=== PATIENT | female | born 1975 | race Caucasian/White ===

== ENCOUNTER 2019-02-27 11:02 | Inpatient (IN) ==
--- NOTE | 2019-02-27 11:34 | Emergency Department Note ---
Disposition Clinical Impression: Mechanical breakdown of internal fixation device of vertebrae Qualifiers: Encounter type: initial encounter Qualified Code(s): T84.216A - Breakdown (mechanical) of internal fixation device of vertebrae, initial encounter Disposition: Admitted As Inpatient Time of Disposition: 16:49 General Adult HPI - General Chief complaint: ED Back Pain/Injury Stated complaint: back pain Time Seen by Provider: 02/27/19 11:09 Source: EMS Limitations: no limitations Nursing Notes Reviewed: Yes Vital Signs Reviewed: Yes - History of Present Illness HPI Narrative: 43 year old female presents with lower back pain. Patient stated she has lower back pain issue for 37 years. She had a 3 back surgeries. In the past 2 weeks, she felt constant pain in lower back. Associated with bladder spasms and frequency urinating. Pt stated she couldn't hold urine and bowel movement sometimes. Pt couldn't stand up and walk without crutches. Pt stated it was new for her. No nausea and vomiting. No chills and fever. No recently injury. Pt had back surgeries by Dr. Contreras who moved to [place]. Pt stated she couldn't contact him. Onset (ago): week(s) (2) Pain Scale: 10 - Related Data Allergies Allergy/AdvReac Type Severity Reaction Status Date / Time Sulfa (Sulfonamide Allergy Hives Verified 02/27/19 12:15 Antibiotics) Constitutional: Denies: fever, chills Eyes: Denies: eye pain ENT ED: Denies: ear pain Cardiovascular: Denies: chest pain Respiratory: Denies: cough Gastrointestinal: Denies: abdominal pain Genitourinary: Denies: urgency Musculoskeletal: Reports: back pain Integumentary: Denies: rash Neurological: Denies: headache Psychiatric: Denies: anxiety Endocrine: Denies: fatigue Hematological/Lymphatic: Denies: easy bleeding Allergic/Immunologic: Denies: facial swelling Past Medical History - Past Medical History Medical history: Reports: no medical history Psychiatric history: Reports: anxiety, bipolar, depression, schizophrenia, other - Social History Smoking Status: Current every day smoker Smokeless Tobacco Status: No Alcohol use: Reports: occasionally Drug use: Reports: methamphetamine Physical Exam - General Limitations: no limitations General appearance: alert - Head Head exam: atraumatic - Eye Eye exam: Present: normal appearance - ENT ENT exam: normal exam - Neck Neck exam: Present: normal inspection - Chest Chest inspection: Present: normal inspection - Respiratory Respiratory exam: Present: normal lung sounds bilaterally - Cardiovascular Cardiovascular exam: Present: regular rate - Abdominal Exam Abdominal exam: Present: soft, Non-Tender - Rectal Exam Handicapped Teacher present during exam: No Rectal exam: Present: decreased rectal tone (slightly loose rectal tone) - Extremities Exam Extremities exam: Present: normal inspection, full ROM. Absent: tenderness - Back Exam Back exam: Present: normal inspection, full ROM, tenderness (lumbar spine tender to palpation) - Neurological Exam Neurological exam: Present: alert, oriented X3, CN II-XII intact, motor sensory deficit (pt couldn't stand up) - Psychiatric Psychiatric exam: Present: normal affect, normal mood - Skin Skin exam: Present: warm, intact Course Vital Signs Temperature 98.2 F 02/27/19 11:10 Pulse Rate 86 02/27/19 11:10 Respiratory Rate 16 02/27/19 11:10 Blood Pressure 141/62 02/27/19 11:10 O2 Sat by Pulse Oximetry 100 02/27/19 11:10 Temperature 98.2 F 02/27/19 16:30 Pulse Rate 88 02/27/19 17:10 Respiratory Rate 16 02/27/19 17:10 Blood Pressure 130/86 02/27/19 17:10 O2 Sat by Pulse Oximetry 97 02/27/19 17:10 Oxygen Delivery Oxygen Delivery Room Air Medical Decision Making - [facility] Narrative Medical decision making narrative: 43 year old female with history of lower back pain and back surgeries since 16 year old presents with worsening lower back pain for 2 weeks. Pt stated she couldn't stand up without crutches. She basically stay on bed in the past two weeks. She felt bladder spasms. She couldn't hold urine and bowel movement sometimes. No recently injury. Physical exam: lumbar spine tender to palpation, not able to stand up, slightly decreased rectal tone. Lumbar xray indicated broken lowest screw in lumbar. Spoke with Dr. Conde. He suggested to admit p atient for pain control and lumbar MRI. He will see the patient tomorrow. I spoke with hospitalist Dr. Serrano. Pt is accepted. Pt's labs: hemoglobin 9.0. Pt stated she always has "lower Iron". Dr. Cash has seen the patient and agrees the above plan. - Lab Data Lab results reviewed: Yes I reviewed the patient's lab results. Result diagrams: 02/27/19 16:23 02/27/19 16:23 Lab Results 02/27/19 02/27/19 02/27/19 Range/Units 12:52 16:23 16:23 WBC 9.5 (4.3-11.1) K/mcL RBC 3.15 L (3.82-4.97) M/mcL Hgb 9.0 L (11.5-15.4) g/dL Hct 28.2 L (35.3-44.9) % MCV 89.5 (83.0-100.0) fL MCH 28.6 (28.0-33.3) pg MCHC 31.9 (31.6-35.5) g/dL RDW 14.6 H (11.5-14.5) % Plt Count 747 H (140-400) K/mcL MPV 8.6 L (9.4-12.4) fL Immature Gran % 0.5 (0-4) % Seg Neutrophils % 74.2 % Lymphocytes % 15.4 % Monocytes % 6.5 % Eosinophils % 2.7 % Basophils % 0.7 % Neutrophils # 7.1 (1.6-8.9) K/mcL Lymphocytes # 1.5 (0.6-4.6) K/mcL Monocytes # 0.6 (0.0-1.3) K/mcL Eosinophils # 0.3 (0.0-0.6) K/mcL Basophils # 0.1 (0.0-0.2) K/mcL Sodium 136 (136-145) mEq/L Potassium 3.5 (3.5-5.1) mEq/L Chloride 101 (98-107) mEq/L Carbon Dioxide 23 (23-29) mEq/L BUN 16 (6-20) mg/dL Creatinine 0.80 (0.60-1.20) mg/dL Est GFR ( Amer) > 60 (> 60) Est GFR (Non-Af Amer) > 60 (> 60) BUN/Creatinine Ratio 20 (6-26) Glucose 117 H (70-105) mg/dL Calculated Osmolality 284 (280-300) Calcium 9.4 (8.6-10.3) mg/dL Total Bilirubin 0.4 (0.3-1.0) mg/dL AST 40 H (13-39) Units/L ALT 47 (7-52) Units/L Alkaline Phosphatase 82 (34-104) Units/L Serum Total Protein 8.4 (6.4-8.9) g/dL Albumin 3.6 (3.5-5.7) g/dL Globulin 4.8 H (2.4-3.5) g/dL Albumin/Globulin Ratio 0.8 L (1.1-2.2) Urine Color Yellow (Yellow) Urine Clarity Turbid A (Clear) Urine pH 5.5 (5.0-8.0) pH Units Ur Specific [place] 1.029 H (1.010-1.025) Urine Protein 30 H (Neg-Trace) mg/dL Urine Glucose (UA) Normal (Normal) mg/dL Urine Ketones Negative (Negative) mg/dL Urine Blood Moderate H (Negative) Urine Nitrite Negative (Negative) Urine Bilirubin Negative (Negative) Urine Urobilinogen Normal (Normal) mg/dL Ur Leukocyte Esterase Moderate H (Negative) Urine Microscopic RBC 3-5 H (0-3) per hpf Urine Microscopic WBC TNTC H (0-3) per hpf Ur Squamous Epith Cells Many H (None-Few) per lpf Urine Bacteria Many H (None-Few) per hpf Urine Mucus Many H (Few) Ur Culture Indicated? YES A (NO) - Radiology Data Radiology results reviewed: Yes I reviewed the patient's radiology results. HISTORY: ORDERING SYSTEM PROVIDED HISTORY: lower back pain FINDINGS: There is a break at the base of the left sided transpedicle screws extending into S1. Indeterminate if this was present on the comparison due to oblique positioning and patient habitus. Fusion hardware elsewhere appears normal. There is unchanged slight anterior wedging of T12. No fracture. No spondylolisthesis. XR/XR lumbar spine 2-3V IMPRESSION: There is a nondisplaced break at the base of the most inferior fusion screw, at the S1 level. No evidence of fusion hardware failure elsewhere, or other acute process. No fracture in the lumbar spine. There are advanced degenerative changes of the facet joints. D/ / Yoel Merritt MD / Yoel Merritt MD Interpreting Provider: Yoel Merritt MD Attestation Statement - Attestation Attestation: I have personally performed a face to face evaluation on this patient. I have reviewed and agree with the care plan. History and Exam by me shows: [id number] time provided I reviewed the transcribed report of her lumbar spine imaging study obtained from the emergency department
[2019-02-27] MEDS ORDERED: *HR* HYDROcodone/Acet 5/325 mg TABLET PO ONE (12:11)
[2019-02-27 13:07] LABS: Bilirubin,Urine Negative (Negative); Blood,Urine Moderate (Negative); Clarity,Urine Turbid (Clear); Color,Urine Yellow (Yellow); Glucose,Urine (UA) Normal (Normal); Ketones,Urine Negative (Negative); Leukocyte Esterase,Urine Moderate (Negative); Nitrite,Urine Negative (Negative); PH,Urine 5.5 pH Units (5.0-8.0); Protein,Urine 30 mg/dL (Neg-Trace); Specific Gravity,Urine 1.029 (1.010-1.025); Urobilinogen,Urine Normal (Normal)
[2019-02-27 13:15] LABS: Bacteria,Urine Many per hpf (None-Few); Squamous Epithelial Cell,Urine Many per lpf (None-Few); WBC,Urine TNTC per hpf (0-3)
[2019-02-27 13:35] LABS: Mucus,Urine Many (Few)
[2019-02-27] MEDS ORDERED: *HR* FentaNYL (PF) 100 MCG/2 ML VIAL IVP ONE (16:08)
[2019-02-27 16:34] LABS: Basophils # 0.1 K/mcL (0.0-0.2); Basophils % 0.7 %; Eosinophils # 0.3 K/mcL (0.0-0.6); Eosinophils % 2.7 %; Hematocrit 28.2 % (35.3-44.9); Immature Granulocytes % 0.5 % (0-4); Lymphocytes # 1.5 K/mcL (0.6-4.6); Lymphocytes % 15.4 %; Mean Corpuscular HGB Conc 31.9 g/dL (31.6-35.5); Mean Corpuscular Hemoglobin 28.6 pg (28.0-33.3); Mean Corpuscular Volume 89.5 fL (83.0-100.0); Mean Platelet Volume 8.6 fL (9.4-12.4); Monocytes # 0.6 K/mcL (0.0-1.3); Monocytes % 6.5 %; Neutrophils # 7.1 K/mcL (1.6-8.9); Platelet Count 747 K/mcL (140-400); Red Blood Count 3.15 M/mcL (3.82-4.97); Red Cell Distribution Width 14.6 % (11.5-14.5); Segmented Neutrophils % 74.2 %; White Blood Count 9.5 K/mcL (4.3-11.1)
[2019-02-27 16:54] LABS: Alanine Aminotransferase 47 Units/L (7-52); Albumin 3.6 g/dL (3.5-5.7); Albumin/Globulin Ratio 0.8 (1.1-2.2); Alkaline Phosphatase 82 Units/L (34-104); Aspartate Amino Transferase 40 Units/L (13-39); BUN/Creatinine Ratio 20 (6-26); Bilirubin,Total 0.4 mg/dL (0.3-1.0); Blood Urea Nitrogen 16 mg/dL (6-20); Calcium 9.4 mg/dL (8.6-10.3); Carbon Dioxide 23 mEq/L (23-29); Chloride 101 mEq/L (98-107); Globulin 4.8 g/dL (2.4-3.5); Glucose 117 mg/dL (70-105); Osmolality,Calculated 284 (280-300); Potassium 3.5 mEq/L (3.5-5.1); Sodium 136 mEq/L (136-145); Total Protein 8.4 g/dL (6.4-8.9); eGFR For African Americans > 60 (> 60); eGFR For Non-African Americans > 60 (> 60)
[2019-02-27] MEDS ORDERED: Ondansetron 4 MG/2 ML VIAL IVP PRN (17:19)
[2019-02-27] MEDS ORDERED: Mag Hydrox/Al Hydrox/Simeth 30 ML UDC PO PRN (17:19)
[2019-02-27] MEDS ORDERED: Naloxone 0.4 MG/ML INJ IVP PRN (17:19)
[2019-02-27] MEDS ORDERED: MOM Conc 10 ML UD.LIQ PO PRN (17:19)
[2019-02-27] MEDS ORDERED: *HR* Promethazine 25 MG/ML VIAL IVP PRN (17:19)
--- NOTE | 2019-02-27 17:24 | Internal Med History&Physical ---
Date of Encounter: 02/27/19 Time of Encounter: 17:51 Internal Medicine - H&P: HPI Admitted From: Home Plans for Post Hospital Care: Home History of present illness: Ms. Alves is a 43 year old female with history of chronic back pain and multiple back surgery presented with three weeks of acute severe lower back pain. She has 3 back surgery in the past with the latest one in [address] Contreras at [facility]. After the surgery, her back pain has significantly improved until 3 weeks ago, when she experienced sudden onset of lower back pain without obvious trigger. She denies recent trauma or strenuous activity. The pain has progressively got worse and she finally decided to come here for further evaluation. 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 She reported dysuria and urgency recently, she tried drinking large amount of cranberry juice without relief of symptoms. She denies fever, chills, or night sweats. She has no weight loss, appetite change, or bowel habit change. In the ED, x-ray of lumbar showed a nondisplaced break at the base of the most inferior fusion screw at the S1 level, no fracture in the lumbar spine, and advanced degenerative change of the facet joints. Orthopedics was consulted, recommended MRI of spine for further evaluation. Patient is admitted for further management. CODE STATUS discussed with patient, she will be full code while in the hospital. Past Med Surg Social Fam HX - Past Medical History Medical history: no medical history Psychiatric history: anxiety, bipolar, depression, schizophrenia, other - Social History Smoking Status: Current every day smoker Smokeless Tobacco Status: No Alcohol use: occasionally Drug use: methamphetamine Internal Medicine - H&P: Meds Allergy/AdvReac Type Severity Reaction Status Date / Time Sulfa (Sulfonamide Allergy Hives Verified 02/27/19 12:15 Antibiotics) All Systems PM: A 10-system review of systems was performed and is negative for pertinent findin gs except as documented above in the HPI. Review of systems: REVIEW OF SYSTEMS: CONSTITUTIONAL: No weight loss, fever, chills, weakness or fatigue. HEENT: Eyes: No visual loss, blurred vision, double vision or yellow sclerae. Ears, Nose, Throat: No hearing loss, sneezing, congestion, runny nose or sore throat. SKIN: No rash or itching. CARDIOVASCULAR: No chest pain, chest pressure or chest discomfort. No palpitations or edema. RESPIRATORY: No shortness of breath, cough or sputum. GASTROINTESTINAL: No anorexia, nausea, vomiting or diarrhea. No abdominal pain or blood. GENITOURINARY: No dysuria, urgency, or frequency. NEUROLOGICAL: No headache, dizziness, syncope, paralysis, ataxia, numbness or tingling in the extremities. No change in bowel or bladder control. MUSCULOSKELETAL: see HPI. HEMATOLOGIC: No anemia, bleeding or bruising. LYMPHATICS: No enlarged nodes. No history of splenectomy. PSYCHIATRIC: No history of depression or anxiety. ENDOCRINOLOGIC: No reports of sweating, cold or heat intolerance. No polyuria or polydipsia. - Constitutional Vitals: Temp Pulse Resp BP Pulse Ox 98.2 F 88 16 130/86 97 02/27/19 16:30 02/27/19 17:10 02/27/19 17:10 02/27/19 17:10 02/27/19 17:10 General appearance: Present: A&O X 3 Exam: PHYSICAL EXAMINATION: GENERAL APPEARANCE: The patient is alert, oriented and in no acute distress. HEENT: Head is normocephalic. The sinuses are nontender. Pupils are equal and reactive. The nares are patent. Oropharynx clear without lesions. NECK: Supple without lymphadenopathy. HEART: Regular rate and rhythm. LUNGS: No crackles or wheezes are heard. ABDOMEN: Soft, nontender, nondistended with good bowel sounds heard. Inguinal area is normal. EXTREMITIES: tenderness at the lower back. NEUROLOGICAL: Gross nonfocal. SKIN: Warm and dry without any rash. Internal Med - H&P Results - Labs CBC & Chem 7: 02/27/19 16:23 02/27/19 16:23 Labs: Short CBC 02/27/19 Range/Units 16:23 WBC 9.5 (4.3-11.1) K/mcL Hgb 9.0 L (11.5-15.4) g/dL Hct 28.2 L (35.3-44.9) % Plt Count 747 H (140-400) K/mcL Neutrophils # 7.1 (1.6-8.9) K/mcL BMP 02/27/19 16:23 Sodium 136 Potassium 3.5 Chloride 101 Carbon Dioxide 23 BUN 16 Creatinine 0.80 Glucose 117 H Calcium 9.4 Liver Function 02/27/19 Range/Units 16:23 Total Bilirubin 0.4 (0.3-1.0) mg/dL AST 40 H (13-39) Units/L ALT 47 (7-52) Units/L Alkaline Phosphatase 82 (34-104) Units/L Albumin 3.6 (3.5-5.7) g/dL Urine 02/27/19 Range/Units 12:52 Urine Color Yellow (Yellow) Urine Clarity Turbid A (Clear) Urine pH 5.5 (5.0-8.0) pH Units Ur Specific [place] 1.029 H (1.010-1.025) Urine Protein 30 H (Neg-Trace) mg/dL Urine Glucose (UA) Normal (Normal) mg/dL - Impressions ITS Impressions Lumbar Spine X-Ray 02/27/19 13:48 IMPRESSION: There is a nondisplaced break at the base of the most inferior fusion screw, at the S1 level. No evidence of fusion hardware failure elsewhere, or other acute process. No fracture in the lumbar spine. There are advanced degenerative changes of the facet joints. D/ / Yoel Merritt MD / Yoel Merritt MD Interpreting Provider: Yoel Merritt MD - Assessment and Plan (1) Acute exacerbation of chronic low back pain Current Visit: Yes Status: Acute Assessment and plan: 43-year-old female with chronic back pain status post multiple back surgery presented with acute exacerbation of back pain. X-ray of lumbar showed nondisplaced broken hardware. Orthopedics consulted, recommended pain control, and mild lumbar. (2) Mechanical breakdown of internal fixation device of vertebrae Current Visit: Yes Status: Acute Assessment and plan: Same as above. Qualifiers: Encounter type: initial encounter Qualified Code(s): T84.216A - Breakdown (mechanical) of internal fixation device of vertebrae, initial encounter (3) UTI (urinary tract infection) Current Visit: Yes Status: Acute Assessment and plan: Rocephin started, pending urine culture. Qualifiers: Urinary tract infection type: site unspecified Hematuria presence: without hematuria Qualified Code(s): N39.0 - Urinary tract infection, site not specified (4) Morbid obesity with BMI of 45.0-49.9, adult Current Visit: No Status: Chronic Assessment and plan: Weight control discussed with patient. (5) DVT prophylaxis Current Visit: Yes Status: Acute Assessment and plan: Heparin subcutaneous. - Time Spent With Patient Total time spent is greater than 50% in coordination of care (as documented) at patient's floor/unit and/or counseling patient: Greater than 35 minutes
[2019-02-27] MEDS ORDERED: cefTRIAXone 2,000 MG in Water for inj. (sterile) 20 ML IVP SCH (18:00)
[2019-02-27] MEDS: *HR* OxyCODONE/APAP 7.5/325 TABLET PO PRN ×2 (19:01→23:04)
[2019-02-27] MEDS: *HR* Heparin 5,000 UNIT/ML VIAL SQ SCH (19:57)
[2019-02-27] MEDS ORDERED: tiZANidine 4 MG TABLET PO ONE (21:54)
[2019-02-27] MEDS: Nicotine 14 MG PATCH.TD24 TD SCH (22:55)
[2019-02-28] MEDS: *HR* OxyCODONE/APAP 7.5/325 TABLET PO PRN ×4 (03:41→18:20)
[2019-02-28 05:27] LABS: Basophils # 0.1 K/mcL (0.0-0.2); Basophils % 0.8 %; Eosinophils # 0.3 K/mcL (0.0-0.6); Eosinophils % 3.1 %; Hematocrit 27.6 % (35.3-44.9); Hemoglobin 8.7 g/dL (11.5-15.4); Immature Granulocytes % 0.7 % (0-4); Lymphocytes # 1.9 K/mcL (0.6-4.6); Lymphocytes % 18.2 %; Mean Corpuscular HGB Conc 31.5 g/dL (31.6-35.5); Mean Corpuscular Volume 88.7 fL (83.0-100.0); Mean Platelet Volume 8.8 fL (9.4-12.4); Monocytes # 0.8 K/mcL (0.0-1.3); Monocytes % 7.6 %; Neutrophils # 7.3 K/mcL (1.6-8.9); Platelet Count 737 K/mcL (140-400); Red Blood Count 3.11 M/mcL (3.82-4.97); Red Cell Distribution Width 14.6 % (11.5-14.5); Segmented Neutrophils % 69.6 %; White Blood Count 10.4 K/mcL (4.3-11.1)
[2019-02-28] MEDS: *HR* Heparin 5,000 UNIT/ML VIAL SQ SCH ×2 (05:30→18:09)
[2019-02-28 05:47] LABS: BUN/Creatinine Ratio 18 (6-26); Blood Urea Nitrogen 16 mg/dL (6-20); Calcium 9.2 mg/dL (8.6-10.3); Carbon Dioxide 22 mEq/L (23-29); Chloride 100 mEq/L (98-107); Glucose 120 mg/dL (70-105); Osmolality,Calculated 282 (280-300); Potassium 3.4 mEq/L (3.5-5.1); Sodium 135 mEq/L (136-145); eGFR For African Americans > 60 (> 60); eGFR For Non-African Americans > 60 (> 60)
[2019-02-28] MEDS: tiZANidine 4 MG TABLET PO PRN ×3 (06:48→23:00)
--- NOTE | 2019-02-28 08:37 | Orthopedic Consult Note ---
<Nabila Young E - Last Filed: 02/28/19 13:52> Date of Encounter: 02/28/19 History of Present Illness HPI: Ms. Alves is a 43 year old female Back pain with bowel and bladder dysfunction starting appx 3 weeks ago. Denies injury or trauma. H/o lumbar fusion in remote past. Patient has sensation and motion to b/l LE hip, knee, and ankle and intact DP pulses Patient asking how long will be in hospital Xrays demonstrate broken screw Awaiting MRI results Case reviewed with Dr. Conde. He states will review MRI and XRay films and make further recommendations regarding intervention. Past Med Surg Social Fam HX - Past Medical History Medical history: no medical history Psychiatric history: anxiety, bipolar, depression, schizophrenia - Past Surgical History Additional surgical history: 3 back surgeries - Social History Smoking Status: Current every day smoker Smokeless Tobacco Status: No Alcohol use: none, occasionally Drug use: methamphetamine Medications and Allergies No Known Home Drugs 02/28/19 [History] Allergy/AdvReac Type Severity Reaction Status Date / Time Sulfa (Sulfonamide Allergy Hives Verified 02/28/19 10:48 Antibiotics) All Systems Reviewed: The remainder of the systems were reviewed and are negative Physical Exam - Constitutional Vitals: Temp Pulse Resp BP Pulse Ox 99.0 F 90 18 120/72 97 02/28/19 08:06 02/28/19 08:06 02/28/19 08:06 02/28/19 08:06 02/28/19 08:06 Results - Labs Result Diagrams: 02/28/19 04:45 02/28/19 04:45 Labs: Abnormal lab results RBC 3.11 M/mcL (3.82-4.97) L 02/28/19 04:45 Hgb 8.7 g/dL (11.5-15.4) L 02/28/19 04:45 Hct 27.6 % (35.3-44.9) L 02/28/19 04:45 MCHC 31.5 g/dL (31.6-35.5) L 02/28/19 04:45 RDW 14.6 % (11.5-14.5) H 02/28/19 04:45 Plt Count 737 K/mcL (140-400) H 02/28/19 04:45 MPV 8.8 fL (9.4-12.4) L 02/28/19 04:45 Sodium 135 mEq/L (136-145) L 02/28/19 04:45 Potassium 3.4 mEq/L (3.5-5.1) L 02/28/19 04:45 Carbon Dioxide 22 mEq/L (23-29) L 02/28/19 04:45 Glucose 120 mg/dL (70-105) H 02/28/19 04:45 AST 40 Units/L (13-39) H 02/27/19 16:23 Globulin 4.8 g/dL (2.4-3.5) H 02/27/19 16:23 Albumin/Globulin Ratio 0.8 (1.1-2.2) L 02/27/19 16:23 Urine Clarity Turbid (Clear) A 02/27/19 12:52 Ur Specific [place] 1.029 (1.010-1.025) H 02/27/19 12:52 Urine Protein 30 mg/dL (Neg-Trace) H 02/27/19 12:52 Urine Blood Moderate (Negative) H 02/27/19 12:52 Ur Leukocyte Esterase Moderate (Negative) H 02/27/19 12:52 Urine Microscopic RBC 3-5 per hpf (0-3) H 02/27/19 12:52 Urine Microscopic WBC TNTC per hpf (0-3) H 02/27/19 12:52 Ur Squamous Epith Cells Many per lpf (None-Few) H 02/27/19 12:52 Urine Bacteria Many per hpf (None-Few) H 02/27/19 12:52 Urine Mucus Many (Few) H 02/27/19 12:52 Ur Culture Indicated? YES (NO) A 02/27/19 12:52 H & H 02/27/19 02/28/19 Range/Units 16:23 04:45 Hgb 9.0 L 8.7 L (11.5-15.4) g/dL Hct 28.2 L 27.6 L (35.3-44.9) % All other labs normal. Consult Discharge Plan - Plan Referrals: NONE,PCP [Primary Care Provider] - <Chriss Conde Jr - Last Filed: 02/28/19 16:54> Date of Encounter: 02/28/19 Time of Encounter: 16:47 History of Present Illness Chief complaint: Back pain, status post lumbar fusion, lumbar stenosis HPI: Ms. Alves is a 43 year old female who has back pain which is her predominant symptoms. She also has some intermittent right lower extremity radicular symptoms. She also complains of some bladder status disturbance in that she cannot hold her urine. She is aware when she needs to defecate or urinate but states for at least several weeks this is not as well controlled. She has a history of [address] Skaggs, a neurosurgeon now [place], [place]. We are asked to see due to her symptomatology and management. Exam is as above. She is neurovascularly intact with regard to her bilateral lower extremities. Moves symmetrically. She has no clonus. She fires all upper and lower extremity groups with good strength. MRI of the lumbar spine reveals multilevel degenerative changes. There is instrumentation at on the right at L3-4 L5-S1 which are pedicle screws. There are interbody grafts at L3-4, L4-5, and L5-S1. There are postsurgical changes at these levels. There is severe stenosis at L3-4 and more moderate stenosis at L4-5 and L5-S1. Radiographic examination reveals a broken S1 pedicle screw on the right. This suggests probable pseudarthrosis at this level. Impression; 1) lumbar stenosis 2) lumbar radiculopathy 3) failed hardware 4) status post lumbar fusion Plan: I long discussion with the patient. Patient has no indications for acute surgical intervention. I have low suspicion for true neurogenic bladder as a result of her stenosis. I informed the patient that if indeed the stenosis caused by bladder symptomatology and acute intervention 3 weeks after the onset of symptoms and not likely to improve symptomatology. I suggested pain management consultation as an outpatient basis for consideration of lumbar epidural steroid injections. She may need outpatient urology consultation. In addition I would suggest an in-house physical therapy evaluation for potential rehabilitation versus home therapy or outpatient physical therapy. Gait training and lower extremity strengthening should be emphasized. She can follow-up in my office in 6 weeks after completion of physical therapy and trial of lumbar epidural steroid injections. All Systems Reviewed: The remainder of the systems were reviewed and are negative Physical Exam - Constitutional Vitals: Temp Pulse Resp BP Pulse Ox 100.0 F H 88 18 128/85 96 02/28/19 15:20 02/28/19 15:20 02/28/19 15:20 02/28/19 15:20 02/28/19 15:20 Results - Labs Result Diagrams: 02/28/19 04:45 02/28/19 04:45 Labs: Abnormal lab results RBC 3.11 M/mcL (3.82-4.97) L 02/28/19 04:45 Hgb 8.7 g/dL (11.5-15.4) L 02/28/19 04:45 Hct 27.6 % (35.3-44.9) L 02/28/19 04:45 MCHC 31.5 g/dL (31.6-35.5) L 02/28/19 04:45 RDW 14.6 % (11.5-14.5) H 02/28/19 04:45 Plt Count 737 K/mcL (140-400) H 02/28/19 04:45 MPV 8.8 fL (9.4-12.4) L 02/28/19 04:45 Sodium 135 mEq/L (136-145) L 02/28/19 04:45 Potassium 3.4 mEq/L (3.5-5.1) L 02/28/19 04:45 Carbon Dioxide 22 mEq/L (23-29) L 02/28/19 04:45 Glucose 120 mg/dL (70-105) H 02/28/19 04:45 AST 40 Units/L (13-39) H 02/27/19 16:23 Globulin 4.8 g/dL (2.4-3.5) H 02/27/19 16:23 Albumin/Globulin Ratio 0.8 (1.1-2.2) L 02/27/19 16:23 Urine Clarity Turbid (Clear) A 02/27/19 12:52 Ur Specific [place] 1.029 (1.010-1.025) H 02/27/19 12:52 Urine Protein 30 mg/dL (Neg-Trace) H 02/27/19 12:52 Urine Blood Moderate (Negative) H 02/27/19 12:52 Ur Leukocyte Esterase Moderate (Negative) H 02/27/19 12:52 Urine Microscopic RBC 3-5 per hpf (0-3) H 02/27/19 12:52 Urine Microscopic WBC TNTC per hpf (0-3) H 02/27/19 12:52 Ur Squamous Epith Cells Many per lpf (None-Few) H 02/27/19 12:52 Urine Bacteria Many per hpf (None-Few) H 02/27/19 12:52 Urine Mucus Many (Few) H 02/27/19 12:52 Ur Culture Indicated? YES (NO) A 02/27/19 12:52 H & H 02/28/19 Range/Units 04:45 Hgb 8.7 L (11.5-15.4) g/dL Hct 27.6 L (35.3-44.9) % All other labs normal.
[2019-02-28] MEDS: Nicotine 14 MG PATCH.TD24 TD SCH (10:11)
--- NOTE | 2019-02-28 15:01 | Internal Med Progress Note ---
<Mane Loomis - Last Filed: 02/28/19 16:12> Hospitalist Progress Note - Encounter Date of Encounter: 02/28/19 Time of Encounter: 14:56 - Subjective Interval History: Ms. Ly is a 43 y/o F who presented to the ED 02/27 with the complaint of lower back pain. Pt. states the pain has been ongoing for 3 weeks and could be related to her previous back surgeries 6 years prior. Pt. complains of b/l numbness, tingling, and bowel/bladder incontinence. Pt. denies decreased sensation on b/l lower extremities. Pt. is able to sense when she needs to have a bowel movement but is unable to control bowels or bladder. Pt. denies SOB, coughing, wheezing, dizziness, pain or loss of sensation in UE, palpitations, orthopnea, or PND. - Exam Vitals: Temp Pulse Resp BP Pulse Ox 99.4 F 94 18 127/78 96 02/28/19 11:30 02/28/19 11:30 02/28/19 11:30 02/28/19 11:30 02/28/19 11:30 Exam: Gen: AAOx3, no acute distress. Head: normocephalic Cardio: S1/S2, Regular rate and rhythm, no murmurs or gallops. Lungs: CTA b/l, no wheezes or crackles Abd: Soft, nontender, nondistended, bowel sounds present. Extremities: tenderness at the lower back, muscle strength normal, sensation normal Neuro: no focal deficits Skin: Warm and dry without any rash. - Assessment and Plan (1) Mechanical breakdown of internal fixation device of vertebrae Current Visit: Yes Status: Acute Assessment and Plan: Fixation screw between L5 and S1 on left shows nondisplaced fracture. Dr. Carlton reviewed MRI and films and recommend outpatient pain control and P T. PT consultation submitted for patient. Infectious disease will be consulted for suspected osteomyelitis. Patient will be monitored for changes and pain control. (2) Osteomyelitis Current Visit: Yes Status: Suspected Assessment and Plan: Pt. presented with lower back pain, films suggest nondisplaced internal fixation fracture. Suspected osteomyelitis in lumbar spine. Infectious disease consultation for evaluation. (3) Acute exacerbation of chronic low back pain Current Visit: Yes Status: Acute Assessment and Plan: 43-year-old female with chronic back pain status post multiple back surgery pr esented with acute exacerbation of back pain. X-ray of lumbar showed nondisplaced broken hardware. Orthopedics consulted, recommended pain control, and outpatient PT. Infectious disease consulted for suspected osteomyelitis. (4) Morbid obesity with BMI of 45.0-49.9, adult Current Visit: No Status: Chronic (5) DVT prophylaxis Current Visit: Yes Status: Acute Assessment and Plan: Heparin Subcutaneously on 02/27 (6) UTI (urinary tract infection) Current Visit: Yes Status: Acute Assessment and Plan: Rocephin started, pending urine culture. - Time Spent with Patient Total time spent is greater than 50% in coordination of care (as documented) at patient's floor/unit and/or counseling patient: Internal Medicine: Result - Labs CBC & Chem 7: 02/28/19 04:45 02/28/19 04:45 Labs: Short CBC 02/27/19 02/28/19 Range/Units 16:23 04:45 WBC 9.5 10.4 (4.3-11.1) K/mcL Hgb 9.0 L 8.7 L (11.5-15.4) g/dL Hct 28.2 L 27.6 L (35.3-44.9) % Plt Count 747 H 737 H (140-400) K/mcL Neutrophils # 7.1 7.3 (1.6-8.9) K/mcL BMP 02/27/19 02/28/19 16:23 04:45 Sodium 136 135 L Potassium 3.5 3.4 L Chloride 101 100 Carbon Dioxide 23 22 L BUN 16 16 Creatinine 0.80 0.88 Glucose 117 H 120 H Calcium 9.4 9.2 Liver Function 02/27/19 Range/Units 16:23 Total Bilirubin 0.4 (0.3-1.0) mg/dL AST 40 H (13-39) Units/L ALT 47 (7-52) Units/L Alkaline Phosphatase 82 (34-104) Units/L Albumin 3.6 (3.5-5.7) g/dL - Impressions Impressions Lumbar Spine X-Ray 02/27/19 13:48 IMPRESSION: There is a nondisplaced break at the base of the most inferior fusion screw, at the S1 level. No evidence of fusion hardware failure elsewhere, or other acute process. No fracture in the lumbar spine. There are advanced degenerative changes of the facet joints. D/ / Yoel Merritt MD / Yoel Merritt MD Interpreting Provider: Yoel Merritt MD Lumbar Spine MRI 02/27/19 16:06 IMPRESSION: Abnormal bone marrow signal at L5-S1 with increased T2 signal in the L5-S1 disc space, suspicious for discitis/osteomyelitis. Increased T2 signal in the paraspinal soft tissue surrounding the L5 and S1 vertebral bodies, likely related to extension of inflammatory changes without drainable fluid collection or well-formed abscess. Status post posterior instrumented fusion at L3-4 and L5-S1. Known nondisplaced fracture of the left S1 screw. The left L5 pedicle screw extends to the superior endplate of L5, possibly with hardware loosening. Degenerative disc disease, exacerbating congenitally narrow lumbar spinal canal, progressed at L3-4 and L5-S1. Spinal canal narrowing, severe at L3-4, moderate to severe at L4-5 and L5-S1. Foraminal narrowing, moderate to severe at left L5-S1, moderate at left L3-4 and right L5-S1, mild to moderate at left L4-5, minimal at right L3-4 and right L4-5. D/ / El Hurd MD / El Hurd MD Interpreting Provider: El Hurd MD Consult Discharge Plan - Plan Referrals: NONE,PCP [Primary Care Provider] - <Jesus Rodas - Last Filed: 02/28/19 18:28> Hospitalist Progress Note - Encounter Date of Encounter: 02/28/19 - Exam Vitals: Temp Pulse Resp BP Pulse Ox 100.0 F H 88 18 128/85 96 02/28/19 15:20 02/28/19 15:20 02/28/19 15:20 02/28/19 15:20 02/28/19 15:20 - Assessment and Plan (1) Mechanical breakdown of internal fixation device of vertebrae Current Visit: Yes Status: Acute (2) UTI (urinary tract infection) Current Visit: Yes Status: Suspected (3) Morbid obesity with BMI of 45.0-49.9, adult Current Visit: No Status: Chronic (4) DVT prophylaxis Current Visit: Yes Status: Acute (5) Acute exacerbation of chronic low back pain Current Visit: Yes Status: Acute - Time Spent with Patient Total time spent is greater than 50% in coordination of care (as documented) at patient's floor/unit and/or counseling patient: Internal Medicine: Result - Labs CBC & Chem 7: 02/28/19 04:45 02/28/19 04:45 Labs: Short CBC 02/28/19 Range/Units 04:45 WBC 10.4 (4.3-11.1) K/mcL Hgb 8.7 L (11.5-15.4) g/dL Hct 27.6 L (35.3-44.9) % Plt Count 737 H (140-400) K/mcL Neutrophils # 7.3 (1.6-8.9) K/mcL BMP 02/28/19 04:45 Sodium 135 L Potassium 3.4 L Chloride 100 Carbon Dioxide 22 L BUN 16 Creatinine 0.88 Glucose 120 H Calcium 9.2 - Impressions Impressions Lumbar Spine MRI 02/27/19 16:06 IMPRESSION: Abnormal bone marrow signal at L5-S1 with increased T2 signal in the L5-S1 disc space, suspicious for discitis/osteomyelitis. Increased T2 signal in the paraspinal soft tissue surrounding the L5 and S1 vertebral bodies, likely related to extension of inflammatory changes without drainable fluid collection or well-formed abscess. Status post posterior instrumented fusion at L3-4 and L5-S1. Known nondisplaced fracture of the left S1 screw. The left L5 pedicle screw extends to the superior endplate of L5, possibly with hardware loosening. Degenerative disc disease, exacerbating congenitally narrow lumbar spinal canal, progressed at L3-4 and L5-S1. Spinal canal narrowing, severe at L3-4, moderate to severe at L4-5 and L5-S1. Foraminal narrowing, moderate to severe at left L5-S1, moderate at left L3-4 and right L5-S1, mild to moderate at left L4-5, minimal at right L3-4 and right L4-5. D/ / El Hurd MD / El Hurd MD Interpreting Provider: El Hurd MD - Attending Attestation The history, physical exam, and medical decision making was performed by the medical student either while I was physically present and actively involved or I personally re-performed the exam and medical decision making. I have verified the accuracy of the medical student's documentation with regards to the history, physical exam findings, and medical decision making on 02/28/19. Ms Alves is currently hospitalized for back pain. She remains moderate to high risk due to potential for worsening clinical status. Ms Alves is resting in bed. No fever or chills. Admits to IV drug abuse. No GI issues. Exam Alert. Comfortable NC. EOMI. Mucus membranes dry Neck supple. Heart reg No wheeze Abd soft and nontender No edema now Moves all extremities No rash. I/P 1. Back pain - appreciate Dr. Conde input 2. Abnl MRI - blood cx pending. ID input appreciated. Pt at risk due to hx of IV drug abuse. 3. Morbid obesity Further diagnoses and plan as above. <Mane Loomis - Last Filed: 02/28/19 16:12> (1) Mechanical breakdown of internal fixation device of vertebrae Qualifiers: Encounter type: initial encounter Qualified Code(s): T84.216A - Breakdown (mechanical) of internal fixation device of vertebrae, initial encounter <Jesus Rodas - Last Filed: 02/28/19 18:28> (1) Mechanical breakdown of internal fixation device of vertebrae Qualifiers: Encounter type: subsequent encounter Qualified Code(s): T84.216D - Breakdown (mechanical) of internal fixation device of vertebrae, subsequent encounter (2) UTI (urinary tract infection) Qualifiers: Urinary tract infection type: acute cystitis Hematuria presence: without h ematuria Qualified Code(s): N30.00 - Acute cystitis without hematuria
[2019-02-28] MEDS ORDERED: cefTRIAXone 1,000 MG in Water for inj. (sterile) 10 ML IVP SCH (18:00)
[2019-02-28] MEDS: Acetaminophen 325 MG TABLET PO PRN (21:35)
[2019-03-01] MEDS: *HR* OxyCODONE/APAP 7.5/325 TABLET PO PRN ×4 (01:43→21:28)
[2019-03-01] MEDS: *HR* Heparin 5,000 UNIT/ML VIAL SQ SCH ×2 (04:55→17:54)
[2019-03-01] MEDS: tiZANidine 4 MG TABLET PO PRN ×3 (05:03→17:53)
[2019-03-01 06:10] LABS: Basophils # 0.1 K/mcL (0.0-0.2); Basophils % 0.8 %; Eosinophils # 0.3 K/mcL (0.0-0.6); Eosinophils % 2.5 %; Hemoglobin 8.9 g/dL (11.5-15.4); Immature Granulocytes % 0.8 % (0-4); Lymphocytes # 2.2 K/mcL (0.6-4.6); Lymphocytes % 19.1 %; Mean Corpuscular HGB Conc 31.8 g/dL (31.6-35.5); Mean Corpuscular Hemoglobin 28.3 pg (28.0-33.3); Mean Corpuscular Volume 89.2 fL (83.0-100.0); Mean Platelet Volume 8.7 fL (9.4-12.4); Monocytes # 0.8 K/mcL (0.0-1.3); Neutrophils # 7.9 K/mcL (1.6-8.9); Platelet Count 745 K/mcL (140-400); Red Blood Count 3.14 M/mcL (3.82-4.97); Red Cell Distribution Width 14.6 % (11.5-14.5); Segmented Neutrophils % 69.8 %; White Blood Count 11.4 K/mcL (4.3-11.1)
[2019-03-01 06:32] LABS: BUN/Creatinine Ratio 14 (6-26); Blood Urea Nitrogen 12 mg/dL (6-20); Calcium 9.3 mg/dL (8.6-10.3); Carbon Dioxide 23 mEq/L (23-29); Chloride 101 mEq/L (98-107); Glucose 113 mg/dL (70-105); Osmolality,Calculated 285 (280-300); Potassium 3.7 mEq/L (3.5-5.1); Sodium 137 mEq/L (136-145); eGFR For African Americans > 60 (> 60); eGFR For Non-African Americans > 60 (> 60)
[2019-03-01] MEDS: Nicotine 14 MG PATCH.TD24 TD SCH (07:59)
--- NOTE | 2019-03-01 10:39 | Infectious Disease Consult ---
Infectious Disease-Consult - Encounter Date/Time Date of Encounter: 03/01/19 Time of Encounter: 10:33 - Data of Consult Patient: new to practice Reason for consult: Concern for OM vs discitis in the lower lumbar spine. Recent Hx of IV drug use Consult date: 03/01/19 Requesting Physician: Ariane Giraldo Primary Care Provider: PCP NONE - HPI HPI: Ms. Alves is a 43-year-old female with past medical history of anxiety, bipolar, depression, schizophrenia, and IV drug use. The patient was admitted to the hospital 02/27/19 for mechanical breakdown of internal fixation device of vertebrae. We are consulted 03/01/19 for further workup and treatment recommendations for possible osteomyelitis/discitis. Briefly, the patient's 43-year-old female with past medical history as stated above. The patient presented to the emergency department with a 3 week history of back pain with radiation to the bilateral buttocks and legs with associated weakness admitted difficult to ambulate. She also reports some urinary incontinence. Upon arrival, she was afebrile and hemodynamically stable. She had a normal white blood cell count and renal function. She was noted to have thrombocytosis. LFTs were normal. Urinalysis was obtained which showed moderate blood, moderate leukocyte esterase, too numerous to count white cells, many epithelial cells, many bacteria. Cultures positive for Klebsiella pneu monia and MRSA. She had an L-spine x-ray that showed a nondisplaced break at the base of the inferior fusion screw at S1. Ortho-spine was consulted and recommended admission to the hospital for an MRI and pain control. Blood cultures were obtained 2 sets. She was started empirically on IV Rocephin and admitted to the hospital for further evaluation. Since admission, the patient chronic MRI of the L-spine that showed discitis/hospitalized at L5-S1 with inflammatory changes in the paraspinal soft tissues without discrete phlegmon or abscess. The nondisplaced screw was also noted as well as generative disc disease, spinal canal narrowing, and foraminal narrowing. Orthospine reevaluate the patient after her MRI and deemed that she is not a surgical candidate at this time. Today, her white blood cell count is mildly elevated at 11.4. She did have a low-grade temp of 100 overnight. C urrently, she is on IV Rocephin. We have been asked to evaluate and make further recommendations. During my exam today, the patient states that about 3 weeks condition sudden onset of severe lower back pain with radiation to the bilateral buttocks and lower extremities. She reports associated weakness that makes it difficult to ambulate. She denies any fall or trauma. She denies fevers, chills, rigors. Denies headache or neck pain. Denies chest pain, shortness of breath, or cough. She denies nausea, vomiting, or constipation. She reports one diarrhea stool per day for the past couple of days, but has not had any since admission. She reports her appetite was poor at home, but seems to be a little bit better today. 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 Denies any dysuria or frequency, but does report some bladder and bowel incontinence since the onset of her back pain. She denies oral thrush or skin rashes. She does endorse injecting meth on a regular basis, most recently within the past month, typically in the left antecubital area. She denies any open sores or lesions. She states she does not share needles. The patient lives at home with her significant other. She does not work outside the home. She smokes about a pack of cigarettes per day. IV drug use as stated above. Denies alcohol use. Denies known chronic infectious diseases. Denies any recent travel outside the [facility]. - ROS Review of Systems: All systems reviewed and no additional remarkable complaints except as stated. - Results CBC & Chem 7: 03/01/19 05:06 03/01/19 05:06 - Exam Vitals: Temp Pulse Resp BP Pulse Ox 98.5 F 79 15 121/85 96 03/01/19 08:42 03/01/19 08:42 03/01/19 08:42 03/01/19 08:42 03/01/19 08:42 Exam: Head: Atraumatic, normal inspection, normocephalic. Eye: EOMI, PERRLA, no scleral icterus noted. ENT: Mucous membranes moist. No odontogenic infection noted. No subconjunctival hemorrhage noted. Neck: Normal inspection, no meningismus. Respiratory: Clear to auscultation. No rales, respiratory distress, rhonchi, or wheezes noted. Cardiovascular: Regular rate and rhythm, S1 and S2 audible. No murmurs, rubs, or gallops. GI: Soft, obese, normal bowel sounds. Nontender. Extremities:No joint swelling, pedal edema, or tenderness noted. Back: Normal inspection. Pain with palpation of the lumbar and sacral spine. Positive straight leg raise bilaterally. Neurological: Alert, oriented 3, no focal deficits. Moves all extremities 4. Weakness noted to the bilateral lower extremities, but symmetrical bilaterally. Psychiatric: normal affect, normal mood. Skin: Dry, intact, warm. Normal color. No rashes. No endocarditis stigmata noted. No Known Home Drugs 02/28/19 [History] Allergy/AdvReac Type Severity Reaction Status Date / Time Sulfa (Sulfonamide Allergy Hives Verified 02/28/19 10:48 Antibiotics) - Assessment and Plan (1) Osteomyelitis Current Visit: Yes Status: Suspected Location: L5-S1. Causative organism: Unclear. MRI showed abnormal bone marrow signal at L5-S1 with increased T2 signal in the L5-S1 disc space, suspicious for discitis/osteomyelitis. Could be secondary to the patient's IV drug use. Complicated due to the hardware in the patient's back. Status post PLIF L3-S1. No sepsis criteria noted on admission. Blood cultures drawn 02/27/19 are pending 2 sets. Currently on IV Rocephin. Qualifiers: Osteomyelitis type: acute hematogenous Osteomyelitis location: other site Qualified Code(s): M86.08 - Acute hematogenous osteomyelitis, other sites SNOMED Code(s): 30421947 (2) Mechanical breakdown of internal fixation device of vertebrae Current Visit: Yes Status: Acute Noted on x-ray and MRI. Ortho-spine consulted and following. No surgical intervention planned at this time. Qualifiers: Encounter type: subsequent encounter Qualified Code(s): T84.216D - Breakdown (mechanical) of internal fixation device of vertebrae, subsequent encounter SNOMED Code(s): 590874380 (3) UTI (urinary tract infection) Current Visit: Yes Status: Suspected Asymptomatic bacteriuria vs. true infection. The patient reported urinary incontinence, which could be due to the patient's back injury vs. infection. Urine culture positive for K. pneumoniae and MRSA. Currently on IV Rocephin. Will change antibiotics to cover the discitis/OM which will also cover the urine. Qualifiers: Urinary tract infection type: acute cystitis Hematuria presence: without hematuria Qualified Code(s): N30.00 - Acute cystitis without hematuria SNOMED Code(s): 71287460 (4) Chronic back pain Current Visit: Yes Status: Acute Reports three previous back surgeries, most recent in [address] Skaggs. Exact details unclear as the patient is a poor historian. Qualifiers: Back pain location: low back pain Back pain laterality: midline Sciatica presence: without sciatica Qualified Code(s): M54.5 - Low back pain; G89.29 - Other chronic pain SNOMED Code(s): 233528824 (5) IVDU (intravenous drug user) Current Visit: Yes Status: Acute Reports use of IV meth within the last month. Check HIV, Hepatitis B and C serologies. SNOMED Code(s): 086088595 (6) Morbid obesity with BMI of 45.0-49.9, adult Current Visit: No Status: Chronic SNOMED Code(s): 857387154, 08443928061108 - Recommendations Recommendations: Check ESR and CRP. Check HIV and hepatitis B and C serologies. The patient needs to have a biopsy to send for culture. Given that the patient has hardware in the same area of possible infection, I am not sure if our IR department wound be able to do this procedure. Additionally, the patient would likely benefit from having the hardware removed to decrease the risk of seeding of the hardware. Discontinue Rocephin. Start cefepime 2 grams IV Q12H. Start Vancomycin IV. Pharmacy to dose. Goal trough ~15. Duration of treatment depends on the clinical picture, but likely 6-8 weeks. Monitor renal function and for drug toxicity and dose-adjust antibiotics. Contact precautions per hospital policy. Past Med Surg Social Fam HX - Past Medical History Medical history: no medical history Psychiatric history: anxiety, bipolar, depression, schizophrenia - Past Surgical History Additional surgical history: 3 back surgeries - Social History Smoking Status: Current every day smoker Smokeless Tobacco Status: No Alcohol use: none, occasionally Drug use: methamphetamine Consult Discharge Plan - Plan Referrals: NONE,PCP [Primary Care Provider] - - Attending Attestation I have personally performed a face to face evaluation on this patient. I have reviewed and agree with the care plan. History and Exam by me shows: This is an addendum to original report dictated by Suzi Barba CNP. Please refer to Suzi's note for full detail. Agree with above history of present illness, review of system and physical exam findings. Assessment and plan: 1.Acute back pain for about 6 weeks 2.Osteomyelitis L5-S1 causative organism not clear 3.Sepsis 4.Mechanical breakdown of internal fixation device of vertebral Recommendations Check ESR and CRP. Check HIV and hepatitis B and C serologies. The patient needs to have a biopsy to send for culture. Given that the patient has hardware in the same area of possible infection, I am not sure if our IR department wound be able to do this procedure. Additionally, the patient would likely benefit from having the hardware removed to decrease the risk of seeding of the hardware. Discontinue Rocephin. Start cefepime 2 grams IV Q12H. Start Vancomycin IV. Pharmacy to dose. Goal trough ~15. Duration of treatment depends on the clinical picture, but likely 6-8 weeks. Monitor renal function and for drug toxicity and dose-adjust antibiotics. Contact precautions per hospital policy
[2019-03-01 13:18] LABS: Hepatitis B Surface Antibody 83.02 mIU/mL
[2019-03-01 13:29] LABS: Hepatitis B Surface Antigen Nonreactive (Nonreactive)
--- NOTE | 2019-03-01 16:23 | Internal Med Progress Note ---
<Ariane Giraldo - Last Filed: 03/01/19 17:06> Hospitalist Progress Note - Encounter Date of Encounter: 03/01/19 - Exam Vitals: Temp Pulse Resp BP Pulse Ox 97.9 F 88 16 136/81 95 03/01/19 15:55 03/01/19 15:55 03/01/19 15:55 03/01/19 15:55 03/01/19 15:55 - Assessment and Plan (1) Mechanical breakdown of internal fixation device of vertebrae Current Visit: Yes Status: Acute (2) UTI (urinary tract infection) Current Visit: Yes Status: Suspected (3) Morbid obesity with BMI of 45.0-49.9, adult Current Visit: No Status: Chronic (4) DVT prophylaxis Current Visit: Yes Status: Acute (5) Acute exacerbation of chronic low back pain Current Visit: Yes Status: Acute - Time Spent with Patient Total time spent is greater than 50% in coordination of care (as documented) at patient's floor/unit and/or counseling patient: Internal Medicine: Result - Labs CBC & Chem 7: 03/01/19 05:06 03/01/19 05:06 Labs: Short CBC 03/01/19 Range/Units 05:06 WBC 11.4 H (4.3-11.1) K/mcL Hgb 8.9 L (11.5-15.4) g/dL Hct 28.0 L (35.3-44.9) % Plt Count 745 H (140-400) K/mcL Neutrophils # 7.9 (1.6-8.9) K/mcL BMP 03/01/19 05:06 Sodium 137 Potassium 3.7 Chloride 101 Carbon Dioxide 23 BUN 12 Creatinine 0.83 Glucose 113 H Calcium 9.3 Consult Discharge Plan - Plan Referrals: NONE,PCP [Primary Care Provider] - - Attending Attestation I examined this patient and my medical decision-making was reviewed with the Resident Physician Dr Mckeon. I agree with the documented findings, disposition and treatment plan as described except to the extent set forth below. Ms Alves is currently hospitalized for back pain with suspected discitis Ms Alves is resting in bed, denies fevers, chills, nausea or emesis. cont back pain with limited ability to walk due to pain gen- alert, awake,appears stated age eyes- pupils equal round cv- reg rate and rhythm, normal s1,s2, no murmurs appreciated lungs- ctabl, no wheezing, rhonchi or crackles abd- soft, non tender, non distended, + bs neuro- AAOx3, CN grossly intact, strength intact and equal in BL LE and sensation to light touch intact and equal Back pain w Suspected Discitis on MRI- appreciate ID input, as per Dr Conde no surg intervention required, I have d/w IR whom with aspirate disc space in am, npo p mn, bl cxs ngtd -pt/ot evals pending Morbid obesity- lifestyle modification further dx and plan as noted by resident <Gabino Mckeon - Last Filed: 03/01/19 21:35> Hospitalist Progress Note - Encounter Date of Encounter: 03/01/19 Time of Encounter: 09:00 - Subjective Interval History: Mrs. Carter is a 43-year-old female presents to the ED on 02/27 with lower back pain 3 weeks patient has prior history of L3-L4 fusion and L5-S1 fusion. Imaging found that her S1 fixation screw had broken but was not displaced. MRI revealed probable L5-S1 discitis with surrounding inflammatory changes. Patient has a history of IV drug use, stated today that the last time she injected was approximately a month ago, which raised our concern for possible osteomyelitis of the lumbar and sacral spine. Infectious disease was consulted for further evaluation and workup of her suspected lumbar spine infection. Patient also reports ongoing urinary and fecal incontinence, stating she consents when she needs to use the bathroom but is unable to control her bowel and bladder function. Patient was in relatively poor spirits today, but voiced good understanding of her situation and the current diagnostic and treatment plan. She denies any chest pain,shortness of breath, abdominal pain, nausea or vomitin g. Her back pain and neurological symptoms are unchanged. She is currently scheduled for interventional radiology aspiration of fluid from the infected joint tomorrow Of note, her urine cultures today resulted with growth of MRSA and Klebsiella. ID has recommended waiting for cultures of joint aspirate tomorrow, so that antibiotics can be started which will cover these 2, and any other organisms that are found. - Exam Vitals: Temp Pulse Resp BP Pulse Ox 97.9 F 88 16 136/81 95 03/01/19 15:55 03/01/19 15:55 03/01/19 15:55 03/01/19 15:55 03/01/19 15:55 Exam: Gen: AAOx3, mild distress. Head: normocephalic Cardio: S1/S2, Regular rate and rhythm, no murmurs or gallops. Lungs: CTA b/l, no wheezes or crackles Abd: Obese Soft, nontender, nondistended, bowel sounds present. Extremities: tenderness at the lower back, muscle strength normal, sensation normal Neuro: no focal deficits Skin: Warm and dry without any rash. Psych: Depressed mood with normal affect. Answers questions with intact ju dgement, appropriate insight and linear thought - Assessment and Plan (1) Mechanical breakdown of internal fixation device of vertebrae Current Visit: Yes Status: Acute Assessment and Plan: Patient's history fixation procedure, subsequent resolution of pain, and spontaneous exacerbation of that pain 3 weeks ago is consistent with the possible etiology of hematogenous seeding secondary to inflammation from a spontaneously broken fixation screw. Her IV drug use makes this differential di agnosis of more concern, as there may be seeding of drug-resistant or atypical organisms. * In regards to the hardware itself, Dr. Conde of orthopedic surgery has examined the patient and the films and determined that there is no surgical intervention necessary at this time. * We will work closely with infectious disease to assess and manage the findings of possible discitis with surrounding inflammation. 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 Urinalysis might grow results came today with growth of Klebsiella and MRSA Both these are sensitive to gentamicin and Bactrim * Per recommendations of ID, we are awaiting results of the discitis joint aspirate, fine chemicals operator and antibiotic regimen that will cover all infectious pathogens present in this patient (4) IVDU (intravenous drug user) Current Visit: Yes Status: Chronic Assessment and Plan: Plan to pursue harm reduction counseling and assess patient's desire to quit using illicit drugs prior to discharge (5) DVT prophylaxis Current Visit: Yes Status: Acute Assessment and Plan: Subcutaneous heparin (6) Incontinence Current Visit: Yes Status: Acute Assessment and Plan: Occupational therapy evaluation today revealed the patient was able to ambulate, was a single delivery assistant ambulation needed Patient has had Kerr catheter in place due to inability to ambulate and incontinence. * After discussion with the patient's nurse today, decision was made to remove her Kerr catheter and will use adult diapers while we further assess her incontinence DVT Prophylaxis: Subcutaneous heparin - Summary of Assessment and Plan Summary of Assessment and Plan: No surgery for broken hardware IR sampling of discitis fluid tomorrow Antibiotics will be tailored after results of analysis of that aspirate Continue current pain control plan Nothing by mouth after midnight Kerr DC'd today - Time Spent with Patient Total time spent is greater than 50% in coordination of care (as documented) at patient's floor/unit and/or counseling patient: Internal Medicine: Result - Labs CBC & Chem 7: 03/01/19 05:06 03/01/19 05:06 Labs: Short CBC 03/01/19 Range/Units 05:06 WBC 11.4 H (4.3-11.1) K/mcL Hgb 8.9 L (11.5-15.4) g/dL Hct 28.0 L (35.3-44.9) % Plt Count 745 H (140-400) K/mcL Neutrophils # 7.9 (1.6-8.9) K/mcL BMP 03/01/19 05:06 Sodium 137 Potassium 3.7 Chloride 101 Carbon Dioxide 23 BUN 12 Creatinine 0.83 Glucose 113 H Calcium 9.3 <Ariane Giraldo M - Last Filed: 03/01/19 17:06> (1) Mechanical breakdown of internal fixation device of vertebrae Qualifiers: Encounter type: subsequent encounter Qualified Code(s): T84.216D - Breakdown (mechanical) of internal fixation device of vertebrae, subsequent encounter (2) UTI (urinary tract infection) Qualifiers: Urinary tract infection type: acute cystitis Hematuria presence: without hematuria Qualified Code(s): N30.00 - Acute cystitis without hematuria <Gabino Mckeon S - Last Filed: 03/01/19 21:35> (1) Mechanical breakdown of internal fixation device of vertebrae Qualifiers: Encounter type: subsequent encounter Qualified Code(s): T84.216D - Breakdown (mechanical) of internal fixation device of vertebrae, subsequent encounter (3) UTI (urinary tract infection) Qualifiers: Urinary tract infection type: acute cystitis Hematuria presence: without hematuria Qualified Code(s): N30.00 - Acute cystitis without hematuria (6) Incontinence Qualifiers: Incontinence type: urinary Urinary Incontinence type: unspecified incontinence Qualified Code(s): R32 - Unspecified urinary incontinence
[2019-03-01] MEDS ORDERED: Cefepime HCl 2,000 MG in 0.9 % Sodium Chloride Mini Bag 100 ML IVPB SCH (18:00)
[2019-03-01 21:11] LABS: Hepatitis C Virus Antibody Reactive (Nonreactive)
[2019-03-02] MEDS: *HR* OxyCODONE/APAP 7.5/325 TABLET PO PRN ×4 (01:50→19:42)
[2019-03-02 04:35] LABS: Basophils # 0.1 K/mcL (0.0-0.2); Basophils % 0.7 %; Eosinophils # 0.2 K/mcL (0.0-0.6); Hematocrit 27.6 % (35.3-44.9); Hemoglobin 8.7 g/dL (11.5-15.4); Immature Granulocytes % 0.8 % (0-4); Lymphocytes # 2.2 K/mcL (0.6-4.6); Lymphocytes % 18.9 %; Mean Corpuscular HGB Conc 31.5 g/dL (31.6-35.5); Mean Corpuscular Volume 88.7 fL (83.0-100.0); Mean Platelet Volume 8.4 fL (9.4-12.4); Monocytes # 0.9 K/mcL (0.0-1.3); Monocytes % 7.3 %; Neutrophils # 8.3 K/mcL (1.6-8.9); Platelet Count 677 K/mcL (140-400); Red Blood Count 3.11 M/mcL (3.82-4.97); Red Cell Distribution Width 14.7 % (11.5-14.5); Segmented Neutrophils % 70.3 %; White Blood Count 11.8 K/mcL (4.3-11.1)
[2019-03-02 04:43] LABS: INR 1.1; Prothrombin Time 12.8 Seconds (9.4-12.1)
[2019-03-02 04:58] LABS: Alanine Aminotransferase 27 Units/L (7-52); Albumin 3.3 g/dL (3.5-5.7); Albumin/Globulin Ratio 0.8 (1.1-2.2); Alkaline Phosphatase 69 Units/L (34-104); Aspartate Amino Transferase 20 Units/L (13-39); BUN/Creatinine Ratio 14 (6-26); Bilirubin,Total 0.3 mg/dL (0.3-1.0); Blood Urea Nitrogen 10 mg/dL (6-20); Calcium 9.1 mg/dL (8.6-10.3); Carbon Dioxide 22 mEq/L (23-29); Chloride 105 mEq/L (98-107); Globulin 4.2 g/dL (2.4-3.5); Glucose 104 mg/dL (70-105); Osmolality,Calculated 281 (280-300); Potassium 3.7 mEq/L (3.5-5.1); Sodium 136 mEq/L (136-145); Total Protein 7.5 g/dL (6.4-8.9); eGFR For African Americans > 60 (> 60); eGFR For Non-African Americans > 60 (> 60)
[2019-03-02] MEDS: tiZANidine 4 MG TABLET PO PRN ×3 (05:00→22:28)
[2019-03-02] MEDS: *HR* Heparin 5,000 UNIT/ML VIAL SQ SCH (05:01)
[2019-03-02] MEDS: Cefepime HCl 2,000 MG in Water for inj. (sterile) 20 ML IVPB SCH ×2 (06:54→17:10)
[2019-03-02] MEDS: Nicotine 14 MG PATCH.TD24 TD SCH (09:18)
--- NOTE | 2019-03-02 09:44 | Infectious Disease Progress No ---
ID Progress Note Date of Encounter: 03/02/19 Time of Encounter: 09:10 - Subjective Subjective: Patient seen and examined. No acute events noted overnight. Patient states she feels a little better this morning. Denies fevers, chills, or rigors. Denies chest pain, shortness of breath, or cough. Denies nausea, vomiting, diarrhea, or constipation. States stool was loose this morning. Denies abdominal pain. Kerr catheter discontinued and no urinary incontinence/frequency/dysuria. Denies oral thrush or skin rashes. States back pain is better, 5/10 currently. Continues to report some weakness to the BLE, but states she was able to walk to the bathroom this morning. States she is hungry, but she is currently NPO for biopsy later today. - Objective CBC & Chem 7: 03/02/19 04:22 03/02/19 04:22 - Exam Vitals: Temp Pulse Resp BP Pulse Ox 98.2 F 89 17 134/84 95 03/02/19 07:14 03/02/19 07:14 03/02/19 07:14 03/02/19 07:14 03/02/19 09:00 Exam: Head: Atraumatic, normal inspection, normocephalic. Eye: EOMI, PERRLA, no scleral icterus noted. ENT: Mucous membranes moist. No odontogenic infection noted. No subconjunctival hemorrhage noted. Neck: Normal inspection, no meningismus. Respiratory: Clear to auscultation. No rales, respiratory distress, rhonchi, or wheezes noted. Cardiovascular: Regular rate and rhythm, S1 and S2 audible. No murmurs, rubs, or gallops. GI: Soft, obese, normal bowel sounds. Nontender. Extremities: No joint swelling, pedal edema, or tenderness noted. Back: Normal inspection. Pain with palpation of the lumbar and sacral spine, improved. Positive straight leg raise bilaterally. Neurological: Alert, oriented 3, no focal deficits. Moves all extremities 4. Weakness noted to the bilateral lower extremities, but symmetrical bilaterally and improved from previous exam. Psychiatric: normal affect, normal mood. Skin: Dry, intact, warm. Normal color. No rashes. No endocarditis stigmata noted. - Assessment and Plan (1) Osteomyelitis Current Visit: Yes Status: Suspected Location: L5-S1. Causative organism: Unclear. MRI showed abnormal bone marrow signal at L5-S1 with increased T2 signal in the L5-S1 disc space, suspicious for discitis/osteomyelitis. Could be secondary to the patient's IV drug use. Complicated due to the hardware in the patient's back. Status post PLIF L3-S1. No sepsis criteria noted on admission, but had low-grade fever and now has leukocytosis. Blood cultures drawn 02/27/19 are NGTD 2 sets. ESR >130 and CRP 58. IR consulted. Disc aspiration/bone biopsy planned for later today. Currently on IV cefepime. Qualifiers: Osteomyelitis type: acute hematogenous Osteomyelitis location: other site Qualified Code(s): M86.08 - Acute hematogenous osteomyelitis, other sites SNOMED Code(s): 45262809 (2) Mechanical breakdown of internal fixation device of vertebrae Current Visit: Yes Status: Acute Noted on x-ray and MRI. Etiology: Unclear. Infection vs. other. Ortho-spine consulted and following. No surgical intervention planned at this time. Qualifiers: Encounter type: subsequent encounter Qualified Code(s): T84.216D - Breakdown (mechanical) of internal fixation device of vertebrae, subsequent encounter SNOMED Code(s): 051049731 (3) UTI (urinary tract infection) Current Visit: Yes Status: Suspected Asymptomatic bacteriuria vs. true infection. The patient reported urinary incontinence, which could be due to the patient's back injury vs. infection. Urine culture positive for K. pneumoniae and MRSA. Currently on IV Vanc and cefepime, which will also cover her urine. Qualifiers: Urinary tract infection type: acute cystitis Hematuria presence: without hematuria Qualified Code(s): N30.00 - Acute cystitis without hematuria SNOMED Code(s): 24868959 (4) Chronic back pain Current Visit: Yes Status: Acute Reports three previous back surgeries, most recent in [address] Skaggs. Exact details unclear as the patient is a poor historian. Qualifiers: Back pain location: low back pain Back pain laterality: midline Sciatica presence: without sciatica Qualified Code(s): M54.5 - Low back pain; G89.29 - Other chronic pain SNOMED Code(s): 244496721 (5) IVDU (intravenous drug user) Current Visit: Yes Status: Chronic Reports use of IV meth within the last month. HIV non-reactive. Hepatitis B immune. The patient denies every having Hep B vaccinations. Hep C positive. SNOMED Code(s): 488310951 (6) Morbid obesity with BMI of 45.0-49.9, adult Current Visit: No Status: Chronic SNOMED Code(s): 425856232, 15183513279173 (7) Hepatitis C antibody positive in blood Current Visit: Yes Status: Acute Likely secondary to IVDU. Outpatient GI referral if the patient wants to pursue treatment. SNOMED Code(s): 609039460 - Recommendations Recommendations: The patient needs to have a biopsy to send for culture. Please send biopsy for pathology and culture (aerobic, anaerobic, AFB, and fungal). Discussed with the primary team. Unfortunately, the patient was started on IV antibiotics before cultures were obtained, which may skew the results. The patient would likely benefit from having the hardware removed due to increased risk of seeding of the hardware. Not sure if she is a candidate for this surgery or not. She may benefit from transfer to tertiary care center. Discussed with the primary team. Continue cefepime 2 grams IV Q12H. Continue Vancomycin IV. Pharmacy to dose. Goal trough ~15. Duration of treatment depends on the clinical picture, but likely 6-8 weeks. Monitor renal function and for drug toxicity and dose-adjust antibiotics. Contact precautions per hospital policy. Consult Discharge Plan - Plan Referrals: NONE,PCP [Primary Care Provider] -
--- NOTE | 2019-03-02 10:55 | Internal Med Progress Note ---
<Ariane Giraldo - Last Filed: 03/02/19 13:53> Hospitalist Progress Note - Encounter Date of Encounter: 03/02/19 - Exam Vitals: Temp Pulse Resp BP Pulse Ox 97.6 F 83 16 138/74 97 03/02/19 13:44 03/02/19 13:44 03/02/19 13:44 03/02/19 13:44 03/02/19 13:44 - Assessment and Plan (1) Mechanical breakdown of internal fixation device of vertebrae Current Visit: Yes Status: Acute (2) UTI (urinary tract infection) Current Visit: Yes Status: Suspected (3) Morbid obesity with BMI of 45.0-49.9, adult Current Visit: No Status: Chronic (4) DVT prophylaxis Current Visit: Yes Status: Acute (5) Acute exacerbation of chronic low back pain Current Visit: Yes Status: Acute - Time Spent with Patient Total time spent is greater than 50% in coordination of care (as documented) at patient's floor/unit and/or counseling patient: Internal Medicine: Result - Labs CBC & Chem 7: 03/02/19 04:22 03/02/19 04:22 Labs: Short CBC 03/02/19 Range/Units 04:22 WBC 11.8 H (4.3-11.1) K/mcL Hgb 8.7 L (11.5-15.4) g/dL Hct 27.6 L (35.3-44.9) % Plt Count 677 H (140-400) K/mcL Neutrophils # 8.3 (1.6-8.9) K/mcL BMP 03/02/19 04:22 Sodium 136 Potassium 3.7 Chloride 105 Carbon Dioxide 22 L BUN 10 Creatinine 0.72 Glucose 104 Calcium 9.1 Liver Function 03/02/19 Range/Units 04:22 Total Bilirubin 0.3 (0.3-1.0) mg/dL AST 20 (13-39) Units/L ALT 27 (7-52) Units/L Alkaline Phosphatase 69 (34-104) Units/L Albumin 3.3 L (3.5-5.7) g/dL - ABG Interpretation ABG results: PT/INR, D-dimer PT 12.8 Seconds (9.4-12.1) H 03/02/19 04:22 Consult Discharge Plan - Plan Referrals: NONE,PCP [Primary Care Provider] - - Attending Attestation I examined this patient and my medical decision-making was reviewed with the Resident Physician Dr Mckeon. I agree with the documented findings, disposition and treatment plan as described except to the extent set forth below. Ms Alves is currently hospitalized for back pain with possible discitis v degenerative spine disease Ms Alves is resting in bed, tearful, pain unchanged, but ambulating with PT, no le weakness or numbness tingling today, no saddle paraesthesias , no fevers or chills gen- alert, awake,appears stated age cv- reg rate and rhythm, normal s1,s2, no murmurs appreciated lungs- ctabl, neuro- AAOx3, CN grossly intact, strength intact and equal in BL LE 5/5 and sensation to light touch intact and equal Back pain w Suspected Discitis versus degenerative joint disease on MRI- appreciate ID input, I have discussed w Dr Conde and high suspicion degernative and not infectious,IR to aspirate disc space today, cxs pending, cont iv abx at this time Morbid obesity- lifestyle modification further dx and plan as noted by resident dispo will be to home when med stable <Gabino Mckeon S - Last Filed: 03/02/19 17:23> Hospitalist Progress Note - Encounter Date of Encounter: 03/02/19 Time of Encounter: 10:55 - Subjective Interval History: Patient denies any new complaints overnight, no significant events. She was able to ambulate with physical therapy yesterday, and was able to have her Kerr catheter removed. She states significant relief at being able to use the restroom again. Patient was anxious about her IR procedure today, we discussed the procedure and I reemphasized the necessity of it. Denies chest pain, shortness of breath, nausea, vomiting, new or worsening numbness or tingling, - Exam Vitals: Temp Pulse Resp BP Pulse Ox 98.2 F 89 17 134/84 95 03/02/19 07:14 03/02/19 07:14 03/02/19 07:14 03/02/19 07:14 03/02/19 09:00 Exam: Gen: AAOx3, mild distress. Head: normocephalic ENT: Mucous membranes moist, dentition poor, no oropharyngeal erythema Cardio: S1/S2, Regular rate and rhythm, no murmurs or gallops. Lungs: CTA b/l, no wheezes or crackles Abd: Obese Soft, nontender, nondistended, bowel sounds present. Extremities: Muscle strength grossly normal in all 4 extremities Neuro: no focal deficits Skin: Warm and dry without any rash. Psych: Mood slightly improved from yesterday, appears more anxious than depressed today. Answers questions with intact judgement, appropriate insight and linear thought - Assessment and Plan (1) Mechanical breakdown of internal fixation device of vertebrae Current Visit: Yes Status: Acute Assessment and Plan: As per prior notes, Dr. Conde feels that this does not need surgical intervention to remove the broken hardware this time. Before a final decision is made about this, we are awaiting the results of cultures of the fluid aspirated from the patient's spine today. * If cultures come back positive, we will likely transfer patient for assessment and surgical removal by Dr. Mantilla, the orthopedist who put the hardware in * If cultures come back negative, we are unlikely to pursue surgical options at this time. (2) Acute exacerbation of chronic low back pain Current Visit: Yes Status: Acute Assessment and Plan: Patient still reporting low back pain associated with waxing and waning problems controlling bowels and bladder. Pain is moderately well controlled * Our assessment is that her incontinence is not consistent with neurogenic bladder * Continue current pain regimen (3) UTI (urinary tract infection) Current Visit: Yes Status: Acute Assessment and Plan: as per plan yesterday, we will await the results of her spinal aspirate cultures to tailor antibiotic coverage to include all infectious organisms identified. * Continue vancomycin and cefepime * Adjust antibiotic coverage as needed with ID input (4) IVDU (intravenous drug user) Current Visit: Yes Status: Chronic Assessment and Plan: IVDU as recent as a month ago. Will vp & general counsel with patient tomorrow to determine her desire to seek drug cessation assistance (5) DVT prophylaxis Current Visit: Yes Status: Acute Assessment and Plan: SCD's and SQH (6) Incontinence Current Visit: Yes Status: Acute Assessment and Plan: see a/p for low back pain (7) Hepatitis C Current Visit: Yes Status: Acute Assessment and Plan: Serologies resulted in a reactive Hep C antibody screen. * will send quantitative Hep C pcr with reflex genotyping * Discuss severity of illness and treatment plan with patient tomorrow * follow up as an outpatient with GI once genotyping is resulted. (8) Anemia Current Visit: Yes Status: Chronic Assessment and Plan: patient's labs have consistently shown several abnormalities: * Normocytic anemia * Elevated RDW * Thrombocytosis * Low mean platelet volumes * Grossly elevated ESR * Elevated CRP * low albumin * elevated globulin We are unable to find history of workup for these abnormalities, and will initiate lab investigations to develop a more comprehensive differential d iagnosis than we have at this time * peripheral smear * Iron studies * B12 * Folate * DVT Prophylaxis: Subcutaneous heparin - Time Spent with Patient Total time spent is greater than 50% in coordination of care (as documented) at patient's floor/unit and/or counseling patient: Internal Medicine: Result - Labs CBC & Chem 7: 03/02/19 04:22 03/02/19 04:22 Labs: Short CBC 03/02/19 Range/Units 04:22 WBC 11.8 H (4.3-11.1) K/mcL Hgb 8.7 L (11.5-15.4) g/dL Hct 27.6 L (35.3-44.9) % Plt Count 677 H (140-400) K/mcL Neutrophils # 8.3 (1.6-8.9) K/mcL BMP 03/02/19 04:22 Sodium 136 Potassium 3.7 Chloride 105 Carbon Dioxide 22 L BUN 10 Creatinine 0.72 Glucose 104 Calcium 9.1 Liver Function 03/02/19 Range/Units 04:22 Total Bilirubin 0.3 (0.3-1.0) mg/dL AST 20 (13-39) Units/L ALT 27 (7-52) Units/L Alkaline Phosphatase 69 (34-104) Units/L Albumin 3.3 L (3.5-5.7) g/dL - ABG Interpretation ABG results: PT/INR, D-dimer PT 12.8 Seconds (9.4-12.1) H 03/02/19 04:22 <Ariane Giraldo - Last Filed: 03/02/19 13:53> (1) Mechanical breakdown of internal fixation device of vertebrae Qualifiers: Encounter type: subsequent encounter Qualified Code(s): T84.216D - Breakdown (mechanical) of internal fixation device of vertebrae, subsequent encounter (2) UTI (urinary tract infection) Qualifiers: Urinary tract infection type: acute cystitis Hematuria presence: without hematuria Qualified Code(s): N30.00 - Acute cystitis without hematuria <Gabino Mckeon S - Last Filed: 03/02/19 17:23> (1) Mechanical breakdown of internal fixation device of vertebrae Qualifiers: Encounter type: subsequent encounter Qualified Code(s): T84.216D - Breakdown (mechanical) of internal fixation device of vertebrae, subsequent encounter (3) UTI (urinary tract infection) Qualifiers: Urinary tract infection type: acute cystitis Hematuria presence: without hematuria Qualified Code(s): N30.00 - Acute cystitis without hematuria (6) Incontinence Qualifiers: Incontinence type: urinary Urinary Incontinence type: unspecified incontinence Qualified Code(s): R32 - Unspecified urinary incontinence (8) Anemia Qualifiers: Anemia type: unspecified type Qualified Code(s): D64.9 - Anemia, unspecified
[2019-03-02] MEDS ORDERED: 0.9 % Sodium Chloride 500 ML ONE (11:57)
[2019-03-02] MEDS ORDERED: *HR* FentaNYL (PF) 100 MCG/2 ML VIAL ONE (12:18)
[2019-03-02] MEDS ORDERED: *HR* Midazolam HCl 2 MG/2 ML VIAL ONE (12:18)
[2019-03-02] MEDS ORDERED: *HR* Midazolam HCl 2 MG/2 ML VIAL IVP ONE (12:34)
[2019-03-02] MEDS ORDERED: *HR* FentaNYL (PF) 100 MCG/2 ML VIAL IVP ONE (12:34)
--- NOTE | 2019-03-02 12:57 | Pre-Sedation Evaluation ---
Pre-sedation evaluation - Pre-sedation checklist Date of procedure: 03/02/19 Procedure: disc aspiration Recent Vitals: Last Vital Signs Temp 98.3 F 03/02/19 11:30 Pulse 82 03/02/19 12:49 Resp 14 03/02/19 12:49 BP 123/90 03/02/19 12:49 Pulse Ox 97 03/02/19 12:49 H&P (including ROS) documented in medical record: Yes Previous reaction to sedatives/anesthetics: No Dietary Status: NPO after Midnight Airway Assessment: Patient can open mouth completely, TMJ function normal, Micrognathia (under-bite, receding chin) absent, Neck with adequate range of motion Dentition: No loose teeth or bridges ASA Classification *see protocol: CLASS II-Mild systemic disease Plan of Care: Pt appropriate candidate for procedure/moderate/conscious sedation, Risks/benefits of procedure/sedation discussed w/ patient/family, If not NPO; Risk of intake outweiged by necessity to perform procedure
--- NOTE | 2019-03-02 12:58 | IR Procedure Note ---
Date of procedure: 03/02/19 Consent Obtained: Verbal consent, Written consent Timeout: Correct patient and procedure verified, Correct site verified, Time out performed, Skin prep completed Local anesthetic: Lidocaine 1% Was there an assistant to the vice president present: No Estimated blood loss (cc): 1 Complications: None; Tolerated procedure well Procedure Performed: L5-S1 disc aspiration Specimen: 1 cc bloody fluid with white debris
--- NOTE | 2019-03-02 16:20 | Electrocardiograph Report ---
[address] [address] Test Date: 2019-03-02 Pat Name: Leana Alves Department: 114 Room: [facility] Gender: F Lapeler: : 1975 Requested By: [id number] Order Number: [id number] Reading MD: Phu Case Measurements Intervals [place] Rate: 87 P: 67 TX: 154 QRS: 18 QRSD: 99 T: 20 QT: 361 QTc: 405 Interpretive Statements SINUS RHYTHM Electronically Signed On 03-02-2019 16:18:55 EDT by Phu Case
[2019-03-02 19:05] LABS: % Iron Saturation 11 % (15-50); Iron 27 mcg/dL (50-170); Transferrin 169 mg/dL (203-362)
[2019-03-02 19:25] LABS: Folate 9.9 ng/mL (3.0-16.0)
[2019-03-03] MEDS: *HR* OxyCODONE/APAP 7.5/325 TABLET PO PRN ×4 (01:17→20:02)
[2019-03-03 04:21] LABS: Basophils # 0.1 K/mcL (0.0-0.2); Basophils % 0.7 %; Eosinophils # 0.2 K/mcL (0.0-0.6); Eosinophils % 2.1 %; Hematocrit 27.5 % (35.3-44.9); Hemoglobin 8.7 g/dL (11.5-15.4); Lymphocytes # 1.9 K/mcL (0.6-4.6); Lymphocytes % 17.9 %; Mean Corpuscular HGB Conc 31.6 g/dL (31.6-35.5); Mean Corpuscular Hemoglobin 28.4 pg (28.0-33.3); Mean Corpuscular Volume 89.9 fL (83.0-100.0); Mean Platelet Volume 8.5 fL (9.4-12.4); Monocytes # 0.9 K/mcL (0.0-1.3); Monocytes % 8.4 %; Neutrophils # 7.4 K/mcL (1.6-8.9); Platelet Count 610 K/mcL (140-400); Red Blood Count 3.06 M/mcL (3.82-4.97); Red Cell Distribution Width 14.6 % (11.5-14.5); Segmented Neutrophils % 69.9 %; White Blood Count 10.5 K/mcL (4.3-11.1)
[2019-03-03 04:35] LABS: BUN/Creatinine Ratio 11 (6-26); Blood Urea Nitrogen 8 mg/dL (6-20); Calcium 8.9 mg/dL (8.6-10.3); Carbon Dioxide 21 mEq/L (23-29); Chloride 106 mEq/L (98-107); Glucose 108 mg/dL (70-105); Osmolality,Calculated 283 (280-300); Potassium 3.8 mEq/L (3.5-5.1); Sodium 137 mEq/L (136-145); eGFR For African Americans > 60 (> 60); eGFR For Non-African Americans > 60 (> 60)
[2019-03-03] MEDS: Cefepime HCl 2,000 MG in Water for inj. (sterile) 20 ML IVPB SCH ×2 (05:46→18:06)
[2019-03-03] MEDS: Nicotine 14 MG PATCH.TD24 TD SCH (09:31)
[2019-03-03] MEDS: tiZANidine 4 MG TABLET PO PRN ×3 (09:37→23:18)
--- NOTE | 2019-03-03 09:55 | Discharge Summary ---
Orders not resulted at time of discharge: Pending orders 02/28/19 14:16 Culture,Blood [BC] Routine 03/02/19 08:29 Hepatitis C Qnt Reflx Genotype Routine 03/02/19 12:50 AFB Culture, Body Fluid [TB] AM 0400 Culture,Anaerobic [RM] AM 0400 Culture,Body Fl,w Gram Stain [RM] AM 0400 Fungal Culture [MYC] AM 0400 03/03/19 04:00 Surgical Pathology [PTH] AM 0400 Date of Encounter: 03/03/19 Time of Encounter: 09:53 - Discharge Diagnosis (1) Mechanical breakdown of internal fixation device of vertebrae Status: Acute Qualifiers: Encounter type: subsequent encounter Qualified Code(s): T84.216D - Breakdown (mechanical) of internal fixation device of vertebrae, subsequent encounter (2) Acute exacerbation of chronic low back pain Status: Acute (3) UTI (urinary tract infection) Status: Acute Qualifiers: Urinary tract infection type: acute cystitis Hematuria presence: without hematuria Qualified Code(s): N30.00 - Acute cystitis without hematuria (4) IVDU (intravenous drug user) Status: Chronic (5) DVT prophylaxis Status: Acute (6) Incontinence Status: Acute Qualifiers: Incontinence type: urinary Urinary Incontinence type: unspecified incontinence Qualified Code(s): R32 - Unspecified urinary incontinence (7) Hepatitis C Status: Acute (8) Anemia Status: Chronic Qualifiers: Anemia type: unspecified type Qualified Code(s): D64.9 - Anemia, unspecified Hospital course: Ms. Alves is a 43 year old female - Time Spent with Patient Total time spent providing and/or coordinating discharge services: - Discharge Medications Prescriptions: No Action No Known Home Drugs 1 each .ROUTE AD each Home Medications: No Known Home Drugs 02/28/19 [History] Allergies/Adverse Reactions: Allergy/AdvReac Type Severity Reaction Status Date / Time Sulfa (Sulfonamide Allergy Hives Verified 02/28/19 10:48 Antibiotics) Date of admission: 03/02/19 15:55 Primary care physician: PCP NONE Consults: 02/27/19 17:23 Consult to Orthopedic Surgery [CONS] Routine Consulting Provider: [facility] Reason for Consult: García Carlton Call Completed: Yes 02/28/19 15:27 Consult to Infectious Diseases [CONS] Routine Consulting Provider: Infectious Disease Maia Reason for Consult: Concern for OM vs discitis in the lower lumbar spine. Recent Hx of IV drug use Time Notified: 15:28 Call Completed: Yes 02/28/19 16:10 Consult to Physical Therapy [CONS] Routine Comment: Evaluate, develop and implement POC Reason for Consult: low back pain Does patient have active BEDREST order?: No Is patient medically & hemodynamically stable?: Yes 03/01/19 11:37 Consult to Occupational Therapy [CONS] Routine Comment: Evaluate, develop and implement POC Reason for Consult: difficulty walking, assessment for outpt rehab placement or home with pt Does patient have active BEDREST order?: No Is patient medically & hemodynamically stable?: Yes 03/01/19 17:08 Consult to Juvenile Corrections Officer [CONS] Routine Reason for SW Consult: May require placement for IV ATB's 03/01/19 17:09 Consult to Interventional Radiology [CONS] Routine Consulting Provider: Radiology Interventional [facility] Reason for Consult: suspected discitis v osteo, has spinal hardware, as discussed needs disc space aspiration, we will keep npo p mn Call Completed: Yes - Constitutional Vitals: Temp Pulse Resp BP Pulse Ox 98.4 F 79 19 126/81 97 03/03/19 06:36 03/03/19 06:36 03/03/19 06:36 03/03/19 06:36 03/03/19 06:36 General appearance: Present: A&O X 3 - Discharge Instructions Follow Up With: NONE,PCP [Primary Care Provider] -
--- NOTE | 2019-03-03 10:23 | Infectious Disease Progress No ---
ID Progress Note Date of Encounter: 03/03/19 Time of Encounter: 10:20 - Subjective Subjective: Patient seen and examined. No acute events noted overnight. Patient states she feels a little better this morning. Denies fevers, chills, or rigors. Denies chest pain, shortness of breath, or cough. Denies nausea, vomiting, diarrhea, or constipation. Last BM was yesterday morning. Denies abdominal pain. No urinary incontinence/frequency/dysuria. Denies oral thrush or skin rashes. States back pain is better and is mainly located in the lower back without radiation. Reports improvement in BLE weakness. States appetite is good. - Objective CBC & Chem 7: 03/06/19 01:19 03/06/19 01:19 - Exam Vitals: Temp Pulse Resp BP Pulse Ox 98.4 F 79 19 126/81 97 03/03/19 06:36 03/03/19 06:36 03/03/19 06:36 03/03/19 06:36 03/03/19 06:36 Exam: Head: Atraumatic, normal inspection, normocephalic. Eye: EOMI, PERRLA, no scleral icterus noted. ENT: Mucous membranes moist. No odontogenic infection noted. No subconjunctival hemorrhage noted. Neck: Normal inspection, no meningismus. Respiratory: Clear to auscultation. No rales, respiratory distress, rhonchi, or wheezes noted. Cardiovascular: Regular rate and rhythm, S1 and S2 audible. No murmurs, rubs, o r gallops. GI: Soft, obese, normal bowel sounds. Nontender. Extremities: No joint swelling, pedal edema, or tenderness noted. Back: Normal inspection. Pain with palpation of the lumbar and sacral spine, improved. Neurological: Alert, oriented 3, no focal deficits. Moves all extremities 4. Weakness noted to the bilateral lower extremities, but symmetrical bilaterally and improved from previous exam. Strength 4/5 bilaterally. Psychiatric: normal affect, normal mood. Skin: Dry, intact, warm. Normal color. No rashes. No endocarditis stigmata noted. - Assessment and Plan (1) Osteomyelitis Current Visit: Yes Status: Suspected Location: L5-S1. Causative organism: Unclear. MRI showed abnormal bone marrow signal at L5-S1 with increased T2 signal in the L5-S1 disc space, suspicious for discitis/osteomyelitis. Could be secondary to the patient's IV drug use. Complicated due to the hardware in the patient's back. Status post PLIF L3-S1. No sepsis criteria noted on admission, but patient developed low-grade fever and leukocytosis after admission --> resolved. Blood cultures drawn 02/27/19 are NGTD 2 sets. ESR >130 and CRP 58. IR consulted. STatus post aspiration of the disc space 03/02/19. Cultures pending. Currently on IV cefepime and Vancomycin. Qualifiers: Osteomyelitis type: acute hematogenous Osteomyelitis location: other site Qualified Code(s): M86.08 - Acute hematogenous osteomyelitis, other sites SNOMED Code(s): 26704372 (2) Mechanical breakdown of internal fixation device of vertebrae Current Visit: Yes Status: Acute Noted on x-ray and MRI. Etiology: Unclear. Infection vs. other. Ortho-spine consulted and following. No surgical intervention planned at this time. Qualifiers: Encounter type: subsequent encounter Qualified Code(s): T84.216D - B reakdown (mechanical) of internal fixation device of vertebrae, subsequent encounter SNOMED Code(s): 256887162 (3) UTI (urinary tract infection) Current Visit: Yes Status: Suspected Asymptomatic bacteriuria vs. true infection. The patient reported urinary incontinence, which could be due to the patient's back injury vs. infection. Urine culture positive for K. pneumoniae and MRSA. Currently on IV Vanc and cefepime, which will also cover her urine. Qualifiers: Urinary tract infection type: acute cystitis Hematuria presence: without hematuria Qualified Code(s): N30.00 - Acute cystitis without hematuria SNOMED Code(s): 03575156 (4) Chronic back pain Current Visit: Yes Status: Acute Reports three previous back surgeries, most recent in [address] Skaggs. Exact details unclear as the patient is a poor historian. Qualifiers: Back pain location: low back pain Back pain laterality: midline Sciatica presence: without sciatica Qualified Code(s): M54.5 - Low back pain; G89.29 - Other chronic pain SNOMED Code(s): 997704481 (5) IVDU (intravenous drug user) Current Visit: Yes Status: Chronic Reports use of IV meth within the last month. HIV non-reactive. Hepatitis B immune. The patient denies every having Hep B vaccinations. Hep C positive. SNOMED Code(s): 282787202 (6) Morbid obesity with BMI of 45.0-49.9, adult Current Visit: No Status: Chronic SNOMED Code(s): 319391251, 53289115797929 (7) Hepatitis C antibody positive in blood Current Visit: Yes Status: Acute Likely secondary to IVDU. Outpatient GI referral if the patient wants to pursue treatment. SNOMED Code(s): 494981343 - Recommendations Recommendations: Await biopsy cultures and pathology. Unfortunately, the patient was started on IV antibiotics before cultures were obtained, which may skew the results. The patient would likely benefit from having the hardware removed due to increased risk of seeding of the hardware. Not sure if she is a candidate for this surgery or not. She may benefit from transfer to tertiary care center. Discussed with the primary team. Continue cefepime 2 grams IV Q12H. Continue Vancomycin IV. Pharmacy to dose. Goal trough ~15. Duration of treatment depends on the clinical picture, but likely 6-8 weeks. Monitor renal function and for drug toxicity and dose-adjust antibiotics. Contact precautions per hospital policy. Consult Discharge Plan - Plan Referrals: NONE,PCP [Primary Care Provider] - - Attending Attestation I have personally performed a face to face evaluation on this patient. I have reviewed and agree with the care plan. History and Exam by me shows: Assessment and plan: 1.Acute back pain for about 6 weeks 2.Osteomyelitis L5-S1 causative organism not clear 3.Sepsis 4.Mechanical breakdown of internal fixation device of vertebral Recommendations Status post biopsy by interventional radiology. I did go down to radiology Department and discussed the case with the radiologist on who actually specializes in spine. We reviewed where the mechanical break of the hardware is and where the hardware is in relationship to the infection. I am very concerned that if the hardware states the infection probably will never get treated with antibiotics alone. We will wait for pathology report, cultures and we will tailor antibiotics based on that.
--- NOTE | 2019-03-03 11:19 | Internal Med Progress Note ---
<Ariane Giraldo - Last Filed: 03/03/19 12:27> Hospitalist Progress Note - Encounter Date of Encounter: 03/03/19 - Exam Vitals: Temp Pulse Resp BP Pulse Ox 98.5 F 86 14 115/77 98 03/03/19 11:37 03/03/19 11:37 03/03/19 11:37 03/03/19 11:37 03/03/19 11:37 - Assessment and Plan (1) Mechanical breakdown of internal fixation device of vertebrae Current Visit: Yes Status: Acute (2) UTI (urinary tract infection) Current Visit: Yes Status: Suspected (3) Morbid obesity with BMI of 45.0-49.9, adult Current Visit: No Status: Chronic (4) DVT prophylaxis Current Visit: Yes Status: Acute (5) Acute exacerbation of chronic low back pain Current Visit: Yes Status: Acute - Time Spent with Patient Total time spent is greater than 50% in coordination of care (as documented) at patient's floor/unit and/or counseling patient: Internal Medicine: Result - Labs CBC & Chem 7: 03/03/19 04:00 03/03/19 04:00 Labs: Short CBC 03/03/19 Range/Units 04:00 WBC 10.5 (4.3-11.1) K/mcL Hgb 8.7 L (11.5-15.4) g/dL Hct 27.5 L (35.3-44.9) % Plt Count 610 H (140-400) K/mcL Neutrophils # 7.4 (1.6-8.9) K/mcL BMP 03/03/19 04:00 Sodium 137 Potassium 3.8 Chloride 106 Carbon Dioxide 21 L BUN 8 Creatinine 0.72 Glucose 108 H Calcium 8.9 - ABG Interpretation ABG results: PT/INR, D-dimer PT 12.8 Seconds (9.4-12.1) H 03/02/19 04:22 - Impressions Impressions Needle Aspiration CT 03/02/19 00:00 IMPRESSION: CT-guided aspiration of the L5-S1 disc space performed. D/ / Patel Salmon MD / Patel Salmon MD Interpreting Provider: Patel Salmon MD Chest X-Ray 03/03/19 04:00 IMPRESSION: No evidence for acute cardiopulmonary process. D/ / Eliel Hassan MD / Eliel Hassan MD Interpreting Provider: Eliel Hassan MD Consult Discharge Plan - Plan Referrals: NONE,PCP [Primary Care Provider] - - Attending Attestation I examined this patient and my medical decision-making was reviewed with the Resident Physician Dr Mckeon. I agree with the documented findings, disposition and treatment plan as described except to the extent set forth below. Ms Alves is currently hospitalized for back pain with possible discitis v degenerative spine disease Ms Alves is sitting in chair, pleasant and with improved energy today, feeling well, no numbness in legs currently and no urinary complaints today. denies fevers or chills gen- alert, awake,appears stated age cv- reg rate and rhythm, normal s1,s2, no murmurs appreciated, no le edema lungs- ctabl, normal resp effort on room air neuro- AAOx3, CN grossly intact, Back pain w Suspected Discitis versus degenerative joint disease on MRI- appreciate ID input, I have discussed w Dr Conde and high suspicion degenera tive and not infectious,follow up pending disc space aspirate 03/02/19, cont iv abx at this time Morbid obesity- lifestyle modification KYRA, chronicity unclear- pt will fu with PCP for outpt monitoring and further work up Thrombocytosis- peripheral smear pending Hep C- will have her referred to GI on dc for monitoring and treatment discussion further dx and plan as noted by resident dispo will be to home when med stable <Gabion Mckeon S - Last Filed: 03/03/19 15:48> Hospitalist Progress Note - Encounter Date of Encounter: 03/03/19 Time of Encounter: 11:18 - Subjective Interval History: Mrs. Alves is a 43 year old female who presented with 3 weeks of low back pain. XR showed fractured, non-displaced hardware from prior L5-S1 fusion, MRI showed possible discitis and surrounding inflammatory changes vs degenerative disease in the underlying disc space and vertebral bodies PT underwent IR aspiration of fluid from the affected disc space yesterday. 1 cc of fluid was aspirated, and cultures are pending. Mrs Alves is in remarkably good spirits today, and was comfortably seated during exam. she denies any new complaints, specifically denying chest pain, dyspnea, nausea, vomiting, abdominal pain, headache, worsening numbness or tingling, weakness. She reports ongoing tingling in both legs, and reports waxing and waning urinary incontinence, but states her incontinence seems to be getting better. - Exam Vitals: Temp Pulse Resp BP Pulse Ox 98.4 F 79 19 126/81 97 03/03/19 06:36 03/03/19 06:36 03/03/19 06:36 03/03/19 06:36 03/03/19 06:36 Exam: Gen: AAOx3, no acute distress. Head: normocephalic ENT: Mucous membranes moist, dentition poor, no oropharyngeal erythema Cardio: S1/S2, Regular rate and rhythm, no murmurs or gallops. Lungs: CTA b/l, no wheezes or crackles Abd: Obese Soft, nontender, nondistended, bowel sounds present. Extremities: Muscle strength grossly normal in all 4 extremities Neuro: no focal deficits Skin: Warm and dry without any rash. Psych: mood greatly improved. Answers questions with intact judgement, appropriate insight and linear thought Back: gauze dressing in place over site of IR percutaneous procedure. no bleeding, hematoma, erythema, edema noted. - Assessment and Plan (1) Mechanical breakdown of internal fixation device of vertebrae Current Visit: Yes Status: Acute Assessment and Plan: Awaiting results of aspirate yesterday. * possible transfer for removal of hardware if cultures positive, no removal indicated per ortho if cultures are negative (2) Acute exacerbation of chronic low back pain Current Visit: Yes Status: Acute Assessment and Plan: pain well controlled at this time (3) UTI (urinary tract infection) Current Visit: Yes Status: Acute Assessment and Plan: continue cefepime vancomycin as dosed by pharmacy appreciate input of ID for any adjustments (4) IVDU (intravenous drug user) Current Visit: Yes Status: Chronic (5) DVT prophylaxis Current Visit: Yes Status: Acute Assessment and Plan: SQH (6) Incontinence Current Visit: Yes Status: Acute Assessment and Plan: waxing and waning nature of her incontinence not consistent with neurogenic bladder some improvement after starting ABX for UTI may suggest incontinence as effect of UTI, or exacerbated by UTI (7) Hepatitis C Current Visit: Yes Status: Acute Assessment and Plan: HEp C screen positive Hep C RNA PCR with reflex genotype sent discussed these results with the patient today, she understands that the genotype is needed to direct treatment, that this is a serious infection that can be successfully treated in many patients, and that she will need to follow up with GI as an outpatient to discuss the results of the pending labs (8) Anemia Current Visit: Yes Status: Chronic Assessment and Plan: Patient states known history of iron deficiency, Folate and B12 were normal she stated that she doesn't have a PCP, but will follow up with referred provider for further assessment of her anemia - Time Spent with Patient Total time spent is greater than 50% in coordination of care (as documented) at patient's floor/unit and/or counseling patient: Internal Medicine: Result - Labs CBC & Chem 7: 03/03/19 04:00 03/03/19 04:00 Labs: Short CBC 03/03/19 Range/Units 04:00 WBC 10.5 (4.3-11.1) K/mcL Hgb 8.7 L (11.5-15.4) g/dL Hct 27.5 L (35.3-44.9) % Plt Count 610 H (140-400) K/mcL Neutrophils # 7.4 (1.6-8.9) K/mcL BMP 03/03/19 04:00 Sodium 137 Potassium 3.8 Chloride 106 Carbon Dioxide 21 L BUN 8 Creatinine 0.72 Glucose 108 H Calcium 8.9 - ABG Interpretation ABG results: PT/INR, D-dimer PT 12.8 Seconds (9.4-12.1) H 03/02/19 04:22 - Impressions Impressions Needle Aspiration CT 03/02/19 00:00 IMPRESSION: CT-guided aspiration of the L5-S1 disc space performed. D/ / Patel Salmon MD / Patel Salmon MD Interpreting Provider: Patel Salmon MD Chest X-Ray 03/03/19 04:00 IMPRESSION: No evidence for acute cardiopulmonary process. D/ / Eliel Hassan MD / Eliel Hassan MD Interpreting Provider: Eliel Hassan MD <Ariane Giraldo M - Last Filed: 03/03/19 12:27> (1) Mechanical breakdown of internal fixation device of vertebrae Qualifiers: Encounter type: subsequent encounter Qualified Code(s): T84.216D - Breakdown (mechanical) of internal fixation device of vertebrae, subsequent encounter (2) UTI (urinary tract infection) Qualifiers: Urinary tract infection type: acute cystitis Hematuria presence: without hematuria Qualified Code(s): N30.00 - Acute cystitis without hematuria <Gabino Mckeon S - Last Filed: 03/03/19 15:48> (1) Mechanical breakdown of internal fixation device of vertebrae Qualifiers: Encounter type: subsequent encounter Qualified Code(s): T84.216D - Breakdown (mechanical) of internal fixation device of vertebrae, subsequent encounter (3) UTI (urinary tract infection) Qualifiers: Urinary tract infection type: acute cystitis Hematuria presence: without hematuria Qualified Code(s): N30.00 - Acute cystitis without hematuria (6) Incontinence Qualifiers: Incontinence type: urinary Urinary Incontinence type: unspecified in continence Qualified Code(s): R32 - Unspecified urinary incontinence (8) Anemia Qualifiers: Anemia type: unspecified type Qualified Code(s): D64.9 - Anemia, unspecified
[2019-03-03] MEDS: Melatonin 3 MG TABLET PO PRN (23:01)
[2019-03-04] MEDS: *HR* OxyCODONE/APAP 7.5/325 TABLET PO PRN ×5 (02:37→22:21)
[2019-03-04] MEDS: Cefepime HCl 2,000 MG in Water for inj. (sterile) 20 ML IVPB SCH ×2 (05:13→18:20)
[2019-03-04 07:13] LABS: Basophils # 0.1 K/mcL (0.0-0.2); Basophils % 0.7 %; Eosinophils # 0.2 K/mcL (0.0-0.6); Eosinophils % 2.1 %; Hematocrit 28.7 % (35.3-44.9); Hemoglobin 8.9 g/dL (11.5-15.4); Immature Granulocytes % 0.7 % (0-4); Lymphocytes % 19.7 %; Mean Corpuscular Hemoglobin 28.3 pg (28.0-33.3); Mean Corpuscular Volume 91.1 fL (83.0-100.0); Mean Platelet Volume 8.8 fL (9.4-12.4); Monocytes # 0.8 K/mcL (0.0-1.3); Monocytes % 7.8 %; Neutrophils # 7.1 K/mcL (1.6-8.9); Platelet Count 610 K/mcL (140-400); Red Blood Count 3.15 M/mcL (3.82-4.97); White Blood Count 10.4 K/mcL (4.3-11.1)
[2019-03-04 07:31] LABS: BUN/Creatinine Ratio 14 (6-26); Blood Urea Nitrogen 10 mg/dL (6-20); Calcium 9.3 mg/dL (8.6-10.3); Carbon Dioxide 25 mEq/L (23-29); Chloride 105 mEq/L (98-107); Glucose 103 mg/dL (70-105); Osmolality,Calculated 283 (280-300); Potassium 3.9 mEq/L (3.5-5.1); Sodium 137 mEq/L (136-145); eGFR For African Americans > 60 (> 60); eGFR For Non-African Americans > 60 (> 60)
--- NOTE | 2019-03-04 07:50 | Internal Med Progress Note ---
<Ariane Giraldo - Last Filed: 03/04/19 11:29> Hospitalist Progress Note - Encounter Date of Encounter: 03/04/19 - Exam Vitals: Temp Pulse Resp BP Pulse Ox 98.3 F 76 20 124/79 96 03/04/19 11:16 03/04/19 11:16 03/04/19 11:16 03/04/19 11:16 03/04/19 11:16 - Assessment and Plan (1) Mechanical breakdown of internal fixation device of vertebrae Current Visit: Yes Status: Acute (2) UTI (urinary tract infection) Current Visit: Yes Status: Suspected (3) Morbid obesity with BMI of 45.0-49.9, adult Current Visit: No Status: Chronic (4) DVT prophylaxis Current Visit: Yes Status: Acute (5) Acute exacerbation of chronic low back pain Current Visit: Yes Status: Acute - Time Spent with Patient Total time spent is greater than 50% in coordination of care (as documented) at patient's floor/unit and/or counseling patient: Internal Medicine: Result - Labs CBC & Chem 7: 03/04/19 06:16 03/04/19 06:16 Labs: Short CBC 03/04/19 Range/Units 06:16 WBC 10.4 (4.3-11.1) K/mcL Hgb 8.9 L (11.5-15.4) g/dL Hct 28.7 L (35.3-44.9) % Plt Count 610 H (140-400) K/mcL Neutrophils # 7.1 (1.6-8.9) K/mcL BMP 03/04/19 06:16 Sodium 137 Potassium 3.9 Chloride 105 Carbon Dioxide 25 BUN 10 Creatinine 0.73 Glucose 103 Calcium 9.3 - ABG Interpretation ABG results: PT/INR, D-dimer PT 12.8 Seconds (9.4-12.1) H 03/02/19 04:22 Consult Discharge Plan - Plan Referrals: NONE,PCP [Primary Care Provider] - - Attending Attestation I examined this patient and my medical decision-making was reviewed with the Resident Physician Dr Goldberg. I agree with the documented findings, disposition and treatment plan as described except to the extent set forth below. Ms Alves is currently hospitalized for back pain with possible discitis v degenerative spine disease Ms Long is resting in bed, having mild back pain, no numbness, tingling or fevers, chills gen- alert, awake,appears stated age cv- reg rate and rhythm, normal s1,s2 lungs- ctabl, normal resp effort on room air neuro- AAOx3 Back pain w Possible Discitis versus degenerative joint disease on MRI- appreciate ID input, and Dr Conde input -we cont empiric abx and following of pending disc space aspirate 03/02/19 which remain ngtd - ID is concerned for infectious process and need for hardware removal by her spine surgeon whom practices in [place], Dr Conde has reviewed images and at this time suspects MRI changes are degenerative and not infectious, aspirate cxs should help to guide further treatment KYRA, chronicity unclear- pt will fu with PCP for outpt monitoring and further work up Thrombocytosis- peripheral smear with mod thrombocytosis, fu with pcp Hep C- will have her referred to GI on dc for monitoring and treatment discussion further dx and plan as noted by resident dispo will be to home per pt recs, HOWEVER if she requires IV abx on dc given homelessness and IVDA she will need placed for further treatment in SNF on dc <Santana Goldberg - Last Filed: 03/04/19 15:24> Hospitalist Progress Note - Encounter Date of Encounter: 03/04/19 Time of Encounter: 07:50 - Subjective Interval History: No events overnight, no acute complaints this morning. Patient is aware of plan to wait for pathology and culture results and recommendations from orthopedic spinal surgery and infectious disease. - Exam Vitals: Temp Pulse Resp BP Pulse Ox 97.6 F 80 20 91/62 93 03/04/19 03:40 03/04/19 03:40 03/04/19 03:40 03/04/19 03:40 03/04/19 03:40 Exam: Gen: AAOx3, no acute distress. Head: normocephalic ENT: Mucous membranes moist, dentition poor, no oropharyngeal erythema Cardio: S1/S2, Regular rate and rhythm, no murmurs or gallops. Lungs: CTA b/l, no wheezes or crackles Abd: Obese Soft, nontender, nondistended, bowel sounds present. Extremities: Muscle strength grossly normal in all 4 extremities Neuro: no focal deficits, diminished sensation in bilateral lower extremities Skin: Warm and dry without any rash. Psych: mood greatly improved. Answers questions with intact judgement, appropriate insight and linear thought - Assessment and Plan (1) Mechanical breakdown of internal fixation device of vertebrae Current Visit: Yes Status: Acute Assessment and Plan: Patient originally admitted with back pain, imaging demonstrated fracture of lumbar fusion screw Imaging also demonstrated signs suspicious for discitis versus degenerative changes Infectious disease is concerned about discitis and initiated IV cefepime and vancomycin Orthopedic spine surgeon feels imaging more likely reflects degenerative changes IR performed aspiration and microbiology is pending We will continue IV antibiotics pending micro-and we will tailor treatment per results (2) Acute exacerbation of chronic low back pain Current Visit: Yes Status: Acute (3) Hepatitis C Current Visit: Yes Status: Acute Assessment and Plan: Hepatitis C infection identified on screening Serology also performed for treatment tailoring Patient informed of diagnosis and does not need for treatment We will refer to gastroenterology on discharge (4) Incontinence Current Visit: Yes Status: Acute Assessment and Plan: Patient presented with complaint of incontinence, not consistent with neurogenic bladder or cessation with L-spine She has had some improvement after starting antibiotics for UTI, may been sequela of that we will continue to monitor (5) UTI (urinary tract infection) Current Visit: Yes Status: Acute Assessment and Plan: Empiric antibiotics for hardware covering urinary tract bo (6) Anemia Current Visit: Yes Status: Chronic Assessment and Plan: Patient has known history of iron deficiency, folate and B12 are normal We will refer this to her outpatient PCP at discharge, not in acute problem (7) IVDU (intravenous drug user) Current Visit: Yes Status: Chronic Assessment and Plan: Patient has requested consultation from social work about referral to rehabilitation at discharge DVT Prophylaxis: Subcutaneous heparin - Time Spent with Patient Total time spent is greater than 50% in coordination of care (as documented) at patient's floor/unit and/or counseling patient: Internal Medicine: Result - Labs CBC & Chem 7: 03/04/19 06:16 03/04/19 06:16 Labs: Short CBC 03/04/19 Range/Units 06:16 WBC 10.4 (4.3-11.1) K/mcL Hgb 8.9 L (11.5-15.4) g/dL Hct 28.7 L (35.3-44.9) % Plt Count 610 H (140-400) K/mcL Neutrophils # 7.1 (1.6-8.9) K/mcL BMP 03/04/19 06:16 Sodium 137 Potassium 3.9 Chloride 105 Carbon Dioxide 25 BUN 10 Creatinine 0.73 Glucose 103 Calcium 9.3 - ABG Interpretation ABG results: PT/INR, D-dimer PT 12.8 Seconds (9.4-12.1) H 03/02/19 04:22 - Impressions Impressions Chest X-Ray 03/03/19 04:00 IMPRESSION: No evidence for acute cardiopulmonary process. D/ / Eliel Hassan MD / Eliel Hassan MD Interpreting Provider: Eliel Hassan MD <Ariane Giraldo - Last Filed: 03/04/19 11:29> (1) Mechanical breakdown of internal fixation device of vertebrae Qualifiers: Encounter type: subsequent encounter Qualified Code(s): T84.216D - Breakdown (mechanical) of internal fixation device of vertebrae, subsequent encounter (2) UTI (urinary tract infection) Qualifiers: Urinary tract infection type: acute cystitis Hematuria presence: without hematuria Qualified Code(s): N30.00 - Acute cystitis without hematuria <Santana Goldberg - Last Filed: 03/04/19 15:24> (1) Mechanical breakdown of internal fixation device of vertebrae Qualifiers: Encounter type: subsequent encounter Qualified Code(s): T84.216D - Breakdown (mechanical) of internal fixation device of vertebrae, subsequent encounter (3) Hepatitis C Qualifiers: Viral hepatitis chronicity: chronic Hepatic coma status: without hepatic coma Qualified Code(s): B18.2 - Chronic viral hepatitis C (4) Incontinence Qualifiers: Incontinence type: urinary Urinary Incontinence type: unspecified incontinence Qualified Code(s): R32 - Unspecified urinary incontinence (5) UTI (urinary tract infection) Qualifiers: Urinary tract infection type: acute cystitis Hematuria presence: without hematuria Qualified Code(s): N30.00 - Acute cystitis without hematuria (6) Anemia Qualifiers: Anemia type: unspecified type Qualified Code(s): D64.9 - Anemia, unspecified
[2019-03-04] MEDS: Nicotine 14 MG PATCH.TD24 TD SCH (09:30)
[2019-03-04 11:10] LABS: HCV Quant Interpretation DETECTED (Not Detected); HCV Quant Log 5.18 log IU/mL
[2019-03-04] MEDS: tiZANidine 4 MG TABLET PO PRN ×2 (13:54→22:21)
[2019-03-05] MEDS: *HR* OxyCODONE/APAP 7.5/325 TABLET PO PRN ×5 (04:15→21:54)
[2019-03-05 05:00] LABS: Basophils # 0.1 K/mcL (0.0-0.2); Basophils % 0.7 %; Eosinophils # 0.3 K/mcL (0.0-0.6); Eosinophils % 2.6 %; Hematocrit 28.1 % (35.3-44.9); Hemoglobin 8.8 g/dL (11.5-15.4); Immature Granulocytes % 0.7 % (0-4); Lymphocytes # 2.3 K/mcL (0.6-4.6); Lymphocytes % 21.3 %; Mean Corpuscular HGB Conc 31.3 g/dL (31.6-35.5); Mean Corpuscular Hemoglobin 28.6 pg (28.0-33.3); Mean Corpuscular Volume 91.2 fL (83.0-100.0); Mean Platelet Volume 8.6 fL (9.4-12.4); Monocytes # 0.8 K/mcL (0.0-1.3); Monocytes % 7.4 %; Neutrophils # 7.2 K/mcL (1.6-8.9); Platelet Count 561 K/mcL (140-400); Red Blood Count 3.08 M/mcL (3.82-4.97); Red Cell Distribution Width 14.8 % (11.5-14.5); Segmented Neutrophils % 67.3 %; White Blood Count 10.8 K/mcL (4.3-11.1)
[2019-03-05 05:13] LABS: BUN/Creatinine Ratio 19 (6-26); Blood Urea Nitrogen 13 mg/dL (6-20); Calcium 8.8 mg/dL (8.6-10.3); Carbon Dioxide 22 mEq/L (23-29); Chloride 105 mEq/L (98-107); Glucose 104 mg/dL (70-105); Osmolality,Calculated 282 (280-300); Potassium 3.9 mEq/L (3.5-5.1); Sodium 136 mEq/L (136-145); eGFR For African Americans > 60 (> 60); eGFR For Non-African Americans > 60 (> 60)
[2019-03-05] MEDS: Cefepime HCl 2,000 MG in Water for inj. (sterile) 20 ML IVPB SCH ×2 (05:59→17:40)
[2019-03-05] MEDS: Nicotine 14 MG PATCH.TD24 TD SCH ×2 (07:33→12:54)
--- NOTE | 2019-03-05 08:37 | Internal Med Progress Note ---
<Ariane Giraldo - Last Filed: 03/05/19 10:10> Hospitalist Progress Note - Encounter Date of Encounter: 03/05/19 - Exam Vitals: Temp Pulse Resp BP Pulse Ox 98.6 F 86 18 125/81 96 03/05/19 07:55 03/05/19 07:55 03/05/19 07:55 03/05/19 07:55 03/05/19 07:55 - Assessment and Plan (1) Mechanical breakdown of internal fixation device of vertebrae Current Visit: Yes Status: Acute (2) UTI (urinary tract infection) Current Visit: Yes Status: Suspected (3) Morbid obesity with BMI of 45.0-49.9, adult Current Visit: No Status: Chronic (4) DVT prophylaxis Current Visit: Yes Status: Acute (5) Acute exacerbation of chronic low back pain Current Visit: Yes Status: Acute - Time Spent with Patient Total time spent is greater than 50% in coordination of care (as documented) at patient's floor/unit and/or counseling patient: Internal Medicine: Result - Labs CBC & Chem 7: 03/05/19 04:44 03/05/19 04:44 Labs: Short CBC 03/05/19 Range/Units 04:44 WBC 10.8 (4.3-11.1) K/mcL Hgb 8.8 L (11.5-15.4) g/dL Hct 28.1 L (35.3-44.9) % Plt Count 561 H (140-400) K/mcL Neutrophils # 7.2 (1.6-8.9) K/mcL BMP 03/05/19 04:44 Sodium 136 Potassium 3.9 Chloride 105 Carbon Dioxide 22 L BUN 13 Creatinine 0.70 Glucose 104 Calcium 8.8 - ABG Interpretation ABG results: PT/INR, D-dimer PT 12.8 Seconds (9.4-12.1) H 03/02/19 04:22 Consult Discharge Plan - Plan Referrals: NONE,PCP [Primary Care Provider] - - Attending Attestation I examined this patient and my medical decision-making was reviewed with the Resident Physician Dr Goldberg. I agree with the documented findings, disposition and treatment plan as described except to the extent set forth below. Ms Alves is currently hospitalized for back pain with possible discitis v degenerative spine disease Ms Alves is resting in bed,denies fevers, chills, numbness, tingling, updated to prelim cx results gen- alert, awake,appears stated age cv- reg rate and rhythm, normal s1,s2 lungs- ctabl neuro- AAOx3 Back pain w Possible Discitis versus degenerative joint disease on MRI- appreciate ID input, and Dr Conde input -we cont empiric abx and following of pending disc space aspirate 03/02/19 which remain ngtd - ID is concerned for infectious process and need for hardware removal by her spine surgeon whom practices in [place], Dr Conde has reviewed images and at this time suspects MRI changes are degenerative and not infectious, aspirate cxs should help to guide further treatment KYRA, chronicity unclear- pt will fu with PCP for outpt monitoring and further work up Thrombocytosis- peripheral smear with mod thrombocytosis, fu with pcp Hep C- will have her referred to GI on dc for monitoring and treatment discussion further dx and plan as noted by resident dispo will be to home per pt recs, HOWEVER if she requires IV abx on dc given homelessness and IVDA she will need placed for further treatment in SNF on dc <Santana Goldberg - Last Filed: 03/05/19 17:02> Hospitalist Progress Note - Encounter Date of Encounter: 03/05/19 Time of Encounter: 08:36 - Subjective Interval History: No acute events overnight no acute complaints this morning - Exam Vitals: Temp Pulse Resp BP Pulse Ox 98.6 F 86 18 125/81 96 03/05/19 07:55 03/05/19 07:55 03/05/19 07:55 03/05/19 07:55 03/05/19 07:55 Exam: Gen: AAOx3, no acute distress. Head: normocephalic ENT: Mucous membranes moist, dentition poor, no oropharyngeal erythema Cardio: S1/S2, Regular rate and rhythm, no murmurs or gallops. Lungs: CTA b/l, no wheezes or crackles Abd: Obese Soft, nontender, nondistended, bowel sounds present. Extremities: Muscle strength grossly normal in all 4 extremities Neuro: no focal deficits, diminished sensation in bilateral lower extremities Skin: Warm and dry without any rash. Psych: mood greatly improved. Answers questions with intact judgement, appropri ate insight and linear thought - Assessment and Plan (1) Mechanical breakdown of internal fixation device of vertebrae Current Visit: Yes Status: Acute Assessment and Plan: Patient originally admitted with back pain, imaging demonstrated fracture of lumbar fusion screw Imaging also demonstrated signs suspicious for discitis versus degenerative changes Infectious disease is concerned about discitis and initiated IV cefepime and vancomycin Orthopedic spine surgeon feels imaging more likely reflects degenerative changes IR performed aspiration and microbiology is pending We will continue IV antibiotics pending micro-and we will tailor treatment per results (2) Acute exacerbation of chronic low back pain Current Visit: Yes Status: Acute (3) Hepatitis C Current Visit: Yes Status: Acute Assessment and Plan: Hepatitis C infection identified on screening Serology also performed for treatment tailoring Patient informed of diagnosis and diagnostics needed for treatment We will refer to gastroenterology on discharge (4) Incontinence Current Visit: Yes Status: Acute Assessment and Plan: Patient presented with complaint of incontinence, not consistent with neurogenic bladder or cessation with L-spine She has had some improvement after starting antibiotics for UTI, may been sequela of that we will continue to monitor (5) UTI (urinary tract infection) Current Visit: Yes Status: Acute Assessment and Plan: Empiric antibiotics for hardware covering urinary tract bo (6) Anemia Current Visit: Yes Status: Chronic Assessment and Plan: Patient has known history of iron deficiency, folate and B12 are normal We will refer this to her outpatient PCP at discharge, not in acute problem (7) IVDU (intravenous drug user) Current Visit: Yes Status: Chronic Assessment and Plan: Patient has requested consultation from social work about referral to rehabilitation at discharge DVT Prophylaxis: Subcutaneous heparin - Time Spent with Patient Total time spent is greater than 50% in coordination of care (as documented) at patient's floor/unit and/or counseling patient: Internal Medicine: Result - Labs CBC & Chem 7: 03/05/19 04:44 03/05/19 04:44 Labs: Short CBC 03/05/19 Range/Units 04:44 WBC 10.8 (4.3-11.1) K/mcL Hgb 8.8 L (11.5-15.4) g/dL Hct 28.1 L (35.3-44.9) % Plt Count 561 H (140-400) K/mcL Neutrophils # 7.2 (1.6-8.9) K/mcL BMP 03/05/19 04:44 Sodium 136 Potassium 3.9 Chloride 105 Carbon Dioxide 22 L BUN 13 Creatinine 0.70 Glucose 104 Calcium 8.8 - ABG Interpretation ABG results: PT/INR, D-dimer PT 12.8 Seconds (9.4-12.1) H 03/02/19 04:22 <Ariane Giraldo - Last Filed: 03/05/19 10:10> (1) Mechanical breakdown of internal fixation device of vertebrae Qualifiers: Encounter type: subsequent encounter Qualified Code(s): T84.216D - Breakdown (mechanical) of internal fixation device of vertebrae, subsequent encounter (2) UTI (urinary tract infection) Qualifiers: Urinary tract infection type: acute cystitis Hematuria presence: without hematuria Qualified Code(s): N30.00 - Acute cystitis without hematuria <Santana Goldberg - Last Filed: 03/05/19 17:02> (1) Mechanical breakdown of internal fixation device of vertebrae Qualifiers: Encounter type: subsequent encounter Qualified Code(s): T84.216D - Breakdown (mechanical) of internal fixation device of vertebrae, subsequent encounter (3) Hepatitis C Qualifiers: Viral hepatitis chronicity: chronic Hepatic coma status: without hepatic coma Qualified Code(s): B18.2 - Chronic viral hepatitis C (4) Incontinence Qualifiers: Incontinence type: urinary Urinary Incontinence type: unspecified incontinence Qualified Code(s): R32 - Unspecified urinary incontinence (5) UTI (urinary tract infection) Qualifiers: Urinary tract infection type: acute cystitis Hematuria presence: without h ematuria Qualified Code(s): N30.00 - Acute cystitis without hematuria (6) Anemia Qualifiers: Anemia type: unspecified type Qualified Code(s): D64.9 - Anemia, unspecified
[2019-03-05] MEDS: tiZANidine 4 MG TABLET PO PRN ×2 (12:45→21:54)
[2019-03-05] MEDS: Melatonin 3 MG TABLET PO PRN (21:54)
[2019-03-06 01:43] LABS: Basophils # 0.1 K/mcL (0.0-0.2); Basophils % 0.8 %; Eosinophils # 0.4 K/mcL (0.0-0.6); Eosinophils % 3.1 %; Hematocrit 30.5 % (35.3-44.9); Hemoglobin 9.5 g/dL (11.5-15.4); Immature Granulocytes % 0.7 % (0-4); Lymphocytes % 20.9 %; Mean Corpuscular HGB Conc 31.1 g/dL (31.6-35.5); Mean Corpuscular Hemoglobin 28.2 pg (28.0-33.3); Mean Corpuscular Volume 90.5 fL (83.0-100.0); Mean Platelet Volume 8.8 fL (9.4-12.4); Monocytes % 7.1 %; Neutrophils # 9.6 K/mcL (1.6-8.9); Nucleated Red Blood Cells 0.1 /100 WBC (0); Platelet Count 593 K/mcL (140-400); Red Blood Count 3.37 M/mcL (3.82-4.97); Red Cell Distribution Width 15.1 % (11.5-14.5); Segmented Neutrophils % 67.4 %; White Blood Count 14.2 K/mcL (4.3-11.1)
[2019-03-06 02:05] LABS: BUN/Creatinine Ratio 15 (6-26); Blood Urea Nitrogen 15 mg/dL (6-20); Carbon Dioxide 20 mEq/L (23-29); Chloride 105 mEq/L (98-107); Glucose 107 mg/dL (70-105); Osmolality,Calculated 287 (280-300); Potassium 4.4 mEq/L (3.5-5.1); Sodium 138 mEq/L (136-145); eGFR For African Americans > 60 (> 60); eGFR For Non-African Americans > 60 (> 60)
[2019-03-06] MEDS: *HR* OxyCODONE/APAP 7.5/325 TABLET PO PRN ×4 (05:10→20:23)
[2019-03-06] MEDS: Cefepime HCl 2,000 MG in Water for inj. (sterile) 20 ML IVPB SCH ×2 (05:10→18:17)
[2019-03-06] MEDS: tiZANidine 4 MG TABLET PO PRN ×3 (05:11→23:15)
--- NOTE | 2019-03-06 08:13 | Internal Med Progress Note ---
<Ariane Giraldo - Last Filed: 03/06/19 17:23> Hospitalist Progress Note - Encounter Date of Encounter: 03/06/19 - Exam Vitals: Temp Pulse Resp BP Pulse Ox 98.5 F 94 18 146/93 99 03/06/19 15:03 03/06/19 15:03 03/06/19 15:03 03/06/19 15:03 03/06/19 15:03 - Assessment and Plan (1) Mechanical breakdown of internal fixation device of vertebrae Current Visit: Yes Status: Acute (2) UTI (urinary tract infection) Current Visit: Yes Status: Suspected (3) Morbid obesity with BMI of 45.0-49.9, adult Current Visit: No Status: Chronic (4) DVT prophylaxis Current Visit: Yes Status: Acute (5) Acute exacerbation of chronic low back pain Current Visit: Yes Status: Acute - Time Spent with Patient Total time spent is greater than 50% in coordination of care (as documented) at patient's floor/unit and/or counseling patient: Internal Medicine: Result - Labs CBC & Chem 7: 03/06/19 01:19 03/06/19 01:19 Labs: Short CBC 03/06/19 Range/Units 01:19 WBC 14.2 H (4.3-11.1) K/mcL Hgb 9.5 L (11.5-15.4) g/dL Hct 30.5 L (35.3-44.9) % Plt Count 593 H (140-400) K/mcL Neutrophils # 9.6 H (1.6-8.9) K/mcL BMP 03/06/19 01:19 Sodium 138 Potassium 4.4 Chloride 105 Carbon Dioxide 20 L BUN 15 Creatinine 0.98 Glucose 107 H Calcium 9.0 - ABG Interpretation ABG results: PT/INR, D-dimer PT 12.8 Seconds (9.4-12.1) H 03/02/19 04:22 Consult Discharge Plan - Plan Referrals: NONE,PCP [Primary Care Provider] - - Attending Attestation I examined this patient and my medical decision-making was reviewed with the Resident Physician Dr Mckeon. I agree with the documented findings, disposition and treatment plan as described except to the extent set forth below. Ms Alves is currently hospitalized for back pain with possible discitis v degenerative spine disease Ms Alves is resting in bed,no fevers or chills, back pain remains improved, no numbness/tingling gen- alert, awake,appears stated age cv- reg rate and rhythm, normal s1,s2 lungs- ctabl, normal resp effort on ra neuro- AAOx3, sensation to bl le intact Back pain w Possible Discitis versus degenerative joint disease on MRI- appreciate ID input, and Dr Conde input disc space aspirate 03/02/19 mulligan neg, however ID team has reviewed personally with Rads and MRI findings are c/w infectious process per [facility] -I have d/w Dr Gallo, we are in an unfortunate position as she requires neuro surg or ortho surg eval to identify if infectious process warrants eval of her existing hardware and possibly removal, however we cannot find a hospital or physician willing to accept her in transfer for this needed further work up -at this time we cont with empiric IV abx until we can determine safest most feasible dc plan -greatly appreciate ID assistance KYRA, chronicity unclear- pt will fu with PCP for outpt monitoring and further work up Thrombocytosis- peripheral smear with mod thrombocytosis, fu with pcp Hep C- will have her referred to GI on dc for monitoring and treatment discussion further dx and plan as noted by resident attempted transfer today and unable to get accepting facility. I first called Dr Gustavo Skaggs office in [place], [place] whom is surgeon who placed hardware. He stated not to send pt to [facility] for his eval and said if she needed possible surgery to send her to [facility]. He is willing to see her outpt I called [facility] both their surgical and hospitalist teams declined accepting pt as well. Ortho spine their is willing to see her and give second opinion on outpt basis Dr Rhodes is kind enough to attempt to call [facility] this evening and request transfer from specialist perspective as well No plan for dc at this time as no safe discharge option <Gabino Mckeon S - Last Filed: 03/06/19 19:53> Hospitalist Progress Note - Encounter Date of Encounter: 03/06/19 Time of Encounter: 08:13 - Subjective Interval History: Mrs. Alves is a 43 year old female who presented with 3 weeks of low back pain. XR showed fractured, non-displaced hardware from prior L5-S1 fusion, MRI showed possible discitis and surrounding inflammatory changes vs degenerative disease in the underlying disc space and vertebral bodies PT underwent IR aspiration of fluid from the affected disc space yesterday. 1 cc of fluid was aspirated, and cultures are pending. Mrs Alves reports feeling better today, and expressed some frustration at the length of her stay and the slow pace of progress she seems to be making. she denies any new complaints, specifically denying chest pain, dyspnea, nausea, vomiting, abdominal pain, headache, worsening numbness or tingling, weakness. She reports ongoing tingling in both legs, and reports waxing and waning urinary incontinence, but reports both of these were significantly improved today. - Exam Vitals: Temp Pulse Resp BP Pulse Ox 98.1 F 78 18 114/75 96 03/06/19 06:29 03/06/19 06:29 03/06/19 06:29 03/06/19 06:29 03/06/19 06:29 Exam: Gen: AAOx3, no acute distress. Head: normocephalic ENT: Mucous membranes moist, dentition poor, no oropharyngeal erythema Cardio: S1/S2, Regular rate and rhythm, no murmurs or gallops. Lungs: CTA b/l, no wheezes or crackles Abd: Obese Soft, nontender, nondistended, bowel sounds present. Extremities: Muscle strength grossly normal in all 4 extremities Neuro: no focal deficits Skin: Warm and dry without any rash. Psych: Affect normal, mood fair. Answers questions with intact judgement, appropriate insight and linear thought - Assessment and Plan (1) Mechanical breakdown of internal fixation device of vertebrae Current Visit: Yes Status: Acute Assessment and Plan: Awaiting results of aspirate ID stil recommends transfer for hardware removal due to osteomyelitis * possible transfer tomorrow for removal of hardware / transfer of care to Dr Mantilla, who placed the hardware. (2) Acute exacerbation of chronic low back pain Current Visit: Yes Status: Acute Assessment and Plan: Pain continues to be well controlled Numbness and tingling in bilateral lower extremities improved over the weekend (3) UTI (urinary tract infection) Current Visit: Yes Status: Acute Assessment and Plan: Continue cefepime Vancomycin as dosed by pharmacy Aspirate culture still pending, consider adjustment per recommendations of ID when results are returned (4) Incontinence Current Visit: Yes Status: Acute Assessment and Plan: Improving, patient states sensation and bladder control is better (5) Hepatitis C Current Visit: Yes Status: Acute Assessment and Plan: Hep C PCR and genotype resulted Follow-up outpatient for assessment and treatment with GI (6) Anemia Current Visit: Yes Status: Chronic Assessment and Plan: Patient states known history of iron deficiency, Folate and B12 were normal she stated that she doesn't have a PCP, but will follow up with referred provider for further assessment of her anemia DVT Prophylaxis: Subcutaneous heparin - Summary of Assessment and Plan Summary of Assessment and Plan: No surgery for broken hardware at [facility] awaiting culture results of IR sampling of discitis fluid Antibiotics will be tailored after results of analysis of that aspirate Continue current pain control plan Possible transfer to SNF for continuation of IV ABX tomorrow - Time Spent with Patient Total time spent is greater than 50% in coordination of care (as documented) at patient's floor/unit and/or counseling patient: Internal Medicine: Result - Labs CBC & Chem 7: 03/06/19 01:19 03/06/19 01:19 Labs: Short CBC 03/06/19 Range/Units 01:19 WBC 14.2 H (4.3-11.1) K/mcL Hgb 9.5 L (11.5-15.4) g/dL Hct 30.5 L (35.3-44.9) % Plt Count 593 H (140-400) K/mcL Neutrophils # 9.6 H (1.6-8.9) K/mcL BMP 03/06/19 01:19 Sodium 138 Potassium 4.4 Chloride 105 Carbon Dioxide 20 L BUN 15 Creatinine 0.98 Glucose 107 H Calcium 9.0 - ABG Interpretation ABG results: PT/INR, D-dimer PT 12.8 Seconds (9.4-12.1) H 03/02/19 04:22 <DrAriane Thompson - Last Filed: 03/06/19 17:23> (1) Mechanical breakdown of internal fixation device of vertebrae Qualifiers: Encounter type: subsequent encounter Qualified Code(s): T84.216D - Breakdown (mechanical) of internal fixation device of vertebrae, subsequent encounter (2) UTI (urinary tract infection) Qualifiers: Urinary tract infection type: acute cystitis Hematuria presence: without hematuria Qualified Code(s): N30.00 - Acute cystitis without hematuria <Gabino Mckeon S - Last Filed: 03/06/19 19:53> (1) Mechanical breakdown of internal fixation device of vertebrae Qualifiers: Encounter type: subsequent encounter Qualified Code(s): T84.216D - Breakdown (mechanical) of internal fixation device of vertebrae, subsequent encounter (3) UTI (urinary tract infection) Qualifiers: Urinary tract infection type: acute cystitis Hematuria presence: without hematuria Qualified Code(s): N30.00 - Acute cystitis without hematuria (4) Incontinence Qualifiers: Incontinence type: urinary Urinary Incontinence type: unspecified incontinence Qualified Code(s): R32 - Unspecified urinary incontinence (5) Hepatitis C Qualifiers: Viral hepatitis chronicity: chronic Hepatic coma status: without hepatic coma Qualified Code(s): B18.2 - Chronic viral hepatitis C (6) Anemia Qualifiers: Anemia type: unspecified type Qualified Code(s): D64.9 - Anemia, unspecified
[2019-03-06 08:42] LABS: HCV Genotype by Sequencing 1A OR 1B
[2019-03-06] MEDS: Nicotine 14 MG PATCH.TD24 TD SCH (09:27)
--- NOTE | 2019-03-06 13:38 | Infectious Disease Progress No ---
ID Progress Note Date of Encounter: 03/06/19 Time of Encounter: 13:35 - Subjective Subjective: Patient seen and examined. No acute events noted overnight. Patient states she feels better this morning. Denies fevers, chills, or rigors. Denies chest pain, shortness of breath, or cough. Denies nausea, vomiting, diarrhea, or constipation. Last BM was this morning. Denies abdominal pain. No urinary incontinence/frequency/dysuria. Denies oral thrush or skin rashes. States back pain is better and is mainly located in the lower back without radiation. Reports improvement in BLE weakness. States appetite is good. - Objective CBC & Chem 7: 03/07/19 04:20 03/07/19 04:20 - Exam Vitals: Temp Pulse Resp BP Pulse Ox 99.0 F 76 18 128/86 98 03/06/19 11:03 03/06/19 11:03 03/06/19 11:03 03/06/19 11:03 03/06/19 11:03 Exam: Head: Atraumatic, normal inspection, normocephalic. Eye: EOMI, PERRLA, no scleral icterus noted. ENT: Mucous membranes moist. No odontogenic infection noted. No subconjunctival hemorrhage noted. Neck: Normal inspection, no meningismus. Respiratory: Clear to auscultation. No rales, respiratory distress, rhonchi, or wheezes noted. Cardiovascular: Regular rate and rhythm, S1 and S2 audible. No murmurs, rubs, or gallops. GI: Soft, obese, normal bowel sounds. Nontender. Extremities: No joint swelling, pedal edema, or tenderness noted. Back: Normal inspection. Pain with palpation of the lumbar and sacral spine, improved. Neurological: Alert, oriented 3, no focal deficits. Moves all extremities 4. Weakness noted to the bilateral lower extremities, but symmetrical bilaterally and improved from previous exam. Strength 4/5 bilaterally. Psychiatric: normal affect, normal mood. Skin: Dry, intact, warm. Normal color. No rashes. No endocarditis stigmata noted. - Assessment and Plan (1) Osteomyelitis Current Visit: Yes Status: Suspected Location: L5-S1. Causative organism: Unclear. MRI showed abnormal bone marrow signal at L5-S1 with increased T2 signal in the L5-S1 disc space, suspicious for discitis/osteomyelitis. MRI findings discussed with the [facility] radiologist who confirms that the findings are likely secondary to osteomyelitis/discitis. Could be secondary to the patient's IV drug use. Complicated due to the hardware in the patient's back. Status post PLIF L3-S1. No sepsis criteria noted on admission, but patient developed low-grade fever and leukocytosis after admission --> resolved. Blood cultures drawn 02/27/19 are NGTD 2 sets. ESR >130 and CRP 58. IR consulted. Status post aspiration of the disc space 03/02/19. Cultures are negative. Pathology pending. Currently on IV cefepime and Vancomycin. 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 Etiology: Unclear. Infection vs. other. Ortho-spine consulted and following. No surgical intervention planned at this time. Qualifiers: Encounter type: subsequent encounter Qualified Code(s): T84.216D - Breakdown (mechanical) of internal fixation device of vertebrae, subsequent encounter SNOMED Code(s): 362981211 (3) UTI (urinary tract infection) Current Visit: Yes Status: Resolved Asymptomatic bacteriuria vs. true infection. The patient reported urinary incontinence, which could be due to the patient's back injury vs. infection. Urine culture positive for K. pneumoniae and MRSA. Currently on IV Vanc and cefepime, which will also cover her urine. Qualifiers: Urinary tract infection type: acute cystitis Hematuria presence: without hematuria Qualified Code(s): N30.00 - Acute cystitis without hematuria SNOMED Code(s): 50169056 (4) Chronic back pain Current Visit: Yes Status: Acute Reports three previous back surgeries, most recent [place] [address]ag[address]. Exact details unclear as the patient is a poor historian. Qualifiers: Back pain location: low back pain Back pain laterality: midline Sciatica presence: without sciatica Qualified Code(s): M54.5 - Low back pain; G89.29 - Other chronic pain SNOMED Code(s): 895321562 (5) IVDU (intravenous drug user) Current Visit: Yes Status: Chronic Reports use of IV meth within the last month. HIV non-reactive. Hepatitis B immune. The patient denies every having Hep B vaccinations. Hep C positive. SNOMED Code(s): 295485014 (6) Morbid obesity with BMI of 45.0-49.9, adult Current Visit: No Status: Chronic SNOMED Code(s): 414235826, 83054964417413 (7) Hepatitis C antibody positive in blood Current Visit: Yes Status: Acute Likely secondary to IVDU. Outpatient GI referral if the patient wants to pursue treatment. SNOMED Code(s): 509857008 - Recommendations Recommendations: Await biopsy pathology. Unfortunately, the patient was started on IV antibiotics before cultures were obtained, which likely skewed the results. The patient would likely benefit from having the hardware removed due to increased risk of seeding of the hardware. Not sure if she is a candidate for this surgery or not. She may benefit from transfer to tertiary care center. Discussed with the primary team. Patient is requesting transfer for second opinion from her back surgeon, Dr. Skaggs. Continue cefepime 2 grams IV Q12H. Continue Vancomycin IV. Pharmacy to dose. Goal trough ~15. Duration of treatment depends on the clinical picture, but likely 6-8 weeks. Monitor renal function and for drug toxicity and dose-adjust antibiotics. Contact precautions per hospital policy. Consult Discharge Plan - Plan Referrals: NONE,PCP [Primary Care Provider] - Prescriptions: Cefepime HCl [Maxipime] 2,000 mg IVPB Q12HR #1 vial Vancomycin/0.9 % Sod Chloride [Vanco 1.25 gm/250 ml-0.9% NaCl] 1.25 gm IV Q12H # 1 plast..bag - Attending Attestation I have personally performed a face to face evaluation on this patient. I have reviewed and agree with the care plan. History and Exam by me shows: Assessment and plan: 1.Acute back pain for about 6 weeks 2.Osteomyelitis L5-S1 causative organism not clear 3.Sepsis 4.Mechanical breakdown of internal fixation device of vertebral Recommendations Discussed with Dr. Owusu. We will attempt to transfer the patient to [facility]. Continue vancomycin and cefepime.
[2019-03-06] MEDS: Melatonin 3 MG TABLET PO PRN (23:14)
[2019-03-07 05:11] LABS: Basophils # 0.1 K/mcL (0.0-0.2); Basophils % 0.8 %; Eosinophils # 0.5 K/mcL (0.0-0.6); Eosinophils % 3.9 %; Hematocrit 28.6 % (35.3-44.9); Hemoglobin 8.7 g/dL (11.5-15.4); Immature Granulocytes % 0.5 % (0-4); Lymphocytes # 2.5 K/mcL (0.6-4.6); Lymphocytes % 19.6 %; Mean Corpuscular HGB Conc 30.4 g/dL (31.6-35.5); Mean Platelet Volume 8.9 fL (9.4-12.4); Monocytes # 0.8 K/mcL (0.0-1.3); Monocytes % 6.5 %; Neutrophils # 8.7 K/mcL (1.6-8.9); Platelet Count 520 K/mcL (140-400); Red Blood Count 3.11 M/mcL (3.82-4.97); Red Cell Distribution Width 15.5 % (11.5-14.5); Segmented Neutrophils % 68.7 %; White Blood Count 12.7 K/mcL (4.3-11.1)
[2019-03-07] MEDS: *HR* OxyCODONE/APAP 7.5/325 TABLET PO PRN ×4 (05:11→21:50)
[2019-03-07 05:31] LABS: BUN/Creatinine Ratio 22 (6-26); Blood Urea Nitrogen 16 mg/dL (6-20); Calcium 9.1 mg/dL (8.6-10.3); Carbon Dioxide 25 mEq/L (23-29); Chloride 104 mEq/L (98-107); Glucose 105 mg/dL (70-105); Osmolality,Calculated 282 (280-300); Potassium 4.2 mEq/L (3.5-5.1); Sodium 135 mEq/L (136-145); eGFR For African Americans > 60 (> 60); eGFR For Non-African Americans > 60 (> 60)
[2019-03-07] MEDS: Cefepime HCl 2,000 MG in Water for inj. (sterile) 20 ML IVPB SCH ×2 (06:44→17:45)
--- NOTE | 2019-03-07 07:41 | Internal Med Progress Note ---
<Ariane Giraldo - Last Filed: 03/07/19 12:03> Hospitalist Progress Note - Encounter Date of Encounter: 03/07/19 - Exam Vitals: Temp Pulse Resp BP Pulse Ox 98.2 F 98 16 122/77 98 03/07/19 08:36 03/07/19 08:36 03/07/19 08:36 03/07/19 08:36 03/07/19 08:36 - Assessment and Plan (1) Mechanical breakdown of internal fixation device of vertebrae Current Visit: Yes Status: Acute (2) UTI (urinary tract infection) Current Visit: Yes Status: Suspected (3) Morbid obesity with BMI of 45.0-49.9, adult Current Visit: No Status: Chronic (4) DVT prophylaxis Current Visit: Yes Status: Acute (5) Acute exacerbation of chronic low back pain Current Visit: Yes Status: Acute - Time Spent with Patient Total time spent is greater than 50% in coordination of care (as documented) at patient's floor/unit and/or counseling patient: Internal Medicine: Result - Labs CBC & Chem 7: 03/07/19 04:20 03/07/19 04:20 Labs: Short CBC 03/07/19 Range/Units 04:20 WBC 12.7 H (4.3-11.1) K/mcL Hgb 8.7 L (11.5-15.4) g/dL Hct 28.6 L (35.3-44.9) % Plt Count 520 H (140-400) K/mcL Neutrophils # 8.7 (1.6-8.9) K/mcL BMP 03/07/19 04:20 Sodium 135 L Potassium 4.2 Chloride 104 Carbon Dioxide 25 BUN 16 Creatinine 0.74 Glucose 105 Calcium 9.1 - ABG Interpretation ABG results: PT/INR, D-dimer PT 12.8 Seconds (9.4-12.1) H 03/02/19 04:22 Consult Discharge Plan - Plan Referrals: NONE,PCP [Primary Care Provider] - - Attending Attestation The history, physical exam, and medical decision making was performed by the medical student Loomis either while I was physically present and actively involved or I personally re-performed the exam and medical decision making. I have verified the accuracy of the medical student's documentation with regards to the history, physical exam findings, and medical decision making. Ms Alves is currently hospitalized for back pain with possible discitis v degenerative spine disease Ms Alves is resting, friend at bedside, no fevers or chills, no back pain. she is aware of dilemma with placement/follow up gen- alert, awake,appears stated age cv- reg rate and rhythm, normal s1,s2 lungs- ctabl, normal resp effort on ra abd- soft/nt/nd neuro- AAOx3 Back pain w Possible Discitis versus degenerative joint disease on MRI- appreciate ID input, and Dr Conde input disc space aspirate 03/02/19 mulligan neg, however ID team has reviewed personally with Rads and MRI findings are c/w infectious process per [facility] + Elevated ESR -I have d/w Dr Gallo, we are in an unfortunate position as she requires neuro surg or ortho surg eval to identify if infectious process warrants eval of her existing hardware and possibly removal, however we cannot find a hospital or physician willing to accept her in transfer for this needed further work up -at this time we cont with empiric IV abx until we can determine safest most feasible dc plan -greatly appreciate ID assistance KYRA, chronicity unclear- pt will fu with PCP for outpt monitoring and further work up Thrombocytosis- peripheral smear with mod thrombocytosis, fu with pcp Hep C- will have her referred to GI on dc for monitoring and treatment discussion anticipated dc at this time most likely will be to SNF w IV abx. She needs secured follow up with an ortho spine surgeon or neurosurgeon prior to DC and this will be determined by where SW is able to place her given her IVDA. Ideally she would stay local so that our ID and Ortho Spine surg can follow her. <Mane Loomis - Last Filed: 03/07/19 13:40> Hospitalist Progress Note - Encounter Date of Encounter: 03/07/19 Time of Encounter: 07:41 - Subjective Interval History: Ms. Alves is a 43 y/o F who is hospital admission day 8 for lower back pain and suspicion of osteomyelitis. Pt. had disc aspiration per IR on 03/02 and results are negative so far. Pt. is currently waiting transfer to SNF or other assisted facility for outpatient treatment of osteomylitis where she is able to f/u with ID and ortho. She denies SOB, wheezing, coughing, lightheadedness, palpitations, orthopnea, and numbness. Pt. complains of some lower back which has been improving and some pre-existing tingling in her legs has been improving, sensation is all intact. Pt. states that he urinary incontinence has resolved and has no trouble with BM. Pt. is laying comfortably in bed and is anxious to be d/c. - Exam Vitals: Temp Pulse Resp BP Pulse Ox 98.4 F 74 16 124/79 93 03/07/19 03:19 03/07/19 03:19 03/07/19 03:19 03/07/19 03:19 03/07/19 03:19 Exam: Gen: AAOx3, no acute distress, pleasant affect Head: normocephalic Cardio: S1/S2, RRR, no m/r/g. Chest: CTA b/l, no wheezes or crackles Abd: Soft, nontender, nondistended, bowel sounds present. Extremities: Muscle strength grossly normal in all 4 extremities, pulses and sensation intact Neuro: no focal deficits Skin: Warm and dry without any rash. - Assessment and Plan (1) Mechanical breakdown of internal fixation device of vertebrae Current Visit: Yes Status: Acute Assessment and Plan: Awaiting results of aspirate from 03/02, currently being treated with IV vancomycin, pt. must continue IV vancomycin for 6 weeks. ID recommends transfer for hardware removal due to possible osteomyelitis. Transfer request to Dr. Skaggs (original surgeon who implanted the hardware) was denied, pt. may be seen outpatient by his office. Transfer request to [facility] hospitalist and surgery team denied, pt. may be seen as outpatient by orthopedics team. We are attempting to facilitate a treatment plan where pt. can f/u with ID and ortho for her ongoing osteomyelitis and orthopedic complaints. Pt. currently awaiting transfer to SNF for treatment. (2) Osteomyelitis Current Visit: Yes Status: Suspected Assessment and Plan: MRI showed disc degeneration and possibility of osteomyelitis due to h/o IVDA. Pt. underwent disc aspiration on 03/02 by IR, results show no growth as of yet. Currently receiving vancomycin IV for possible osteomyelitis and cefepime for UTI. IV vancomycin will be continued for 6 weeks, pt. will need to f/u with ID and ortho as outpatient. Pt. awaiting transfer to outside facility for rehabilitation. (3) Acute exacerbation of chronic low back pain Current Visit: Yes Status: Acute Assessment and Plan: Pt. states that her pain is well controlled and improved from first admission. Numbness has resolved, still continues to have tingling. PT continues to see pt., currently waiting for facility to accept her as a transfer for treatment. Patient will need to f/u with ID and ortho within the next few weeks to continue treatment for possible osteomyelitis. (4) Hepatitis C Current Visit: Yes Status: Acute Assessment and Plan: Pt.'s serology returned positive for acute hepatitis C infection. Pt. does want to pursue treatment, GI will see and treat her as outpatient. (5) Morbid obesity with BMI of 45.0-49.9, adult Current Visit: No Status: Chronic (6) UTI (urinary tract infection) Current Visit: Yes Status: Acute Assessment and Plan: Pt. currently receiving cefepime UTI and vancomycin for possible osteomyelitis. Does not currently have any symptoms of UTI. (7) DVT prophylaxis Current Visit: Yes Status: Acute Assessment and Plan: Subcutaneous heparin - Time Spent with Patient Total time spent is greater than 50% in coordination of care (as documented) at patient's floor/unit and/or counseling patient: Internal Medicine: Result - Labs CBC & Chem 7: 03/07/19 04:20 03/07/19 04:20 Labs: Short CBC 03/07/19 Range/Units 04:20 WBC 12.7 H (4.3-11.1) K/mcL Hgb 8.7 L (11.5-15.4) g/dL Hct 28.6 L (35.3-44.9) % Plt Count 520 H (140-400) K/mcL Neutrophils # 8.7 (1.6-8.9) K/mcL BMP 03/07/19 04:20 Sodium 135 L Potassium 4.2 Chloride 104 Carbon Dioxide 25 BUN 16 Creatinine 0.74 Glucose 105 Calcium 9.1 - ABG Interpretation ABG results: PT/INR, D-dimer PT 12.8 Seconds (9.4-12.1) H 03/02/19 04:22 <Ariane Giraldo - Last Filed: 03/07/19 12:03> (1) Mechanical breakdown of internal fixation device of vertebrae Qualifiers: Encounter type: subsequent encounter Qualified Code(s): T84.216D - Breakdown (mechanical) of internal fixation device of vertebrae, subsequent encounter (2) UTI (urinary tract infection) Qualifiers: Urinary tract infection type: acute cystitis Hematuria presence: without hematuria Qualified Code(s): N30.00 - Acute cystitis without hematuria <Mane Loomis J - Last Filed: 03/07/19 13:40> (1) Mechanical breakdown of internal fixation device of vertebrae Qualifiers: Encounter type: subsequent encounter Qualified Code(s): T84.216D - Breakdown (mechanical) of internal fixation device of vertebrae, subsequent encounter (2) Osteomyelitis Qualifiers: Osteomyelitis type: acute hematogenous Osteomyelitis location: other site Qualified Code(s): M86.08 - Acute hematogenous osteomyelitis, other sites (4) Hepatitis C Qualifiers: Viral hepatitis chronicity: chronic Hepatic coma status: without hepatic coma Qualified Code(s): B18.2 - Chronic viral hepatitis C (6) UTI (urinary tract infection) Qualifiers: Urinary tract infection type: acute cystitis Hematuria presence: without hematuria Qualified Code(s): N30.00 - Acute cystitis without hematuria
[2019-03-07] MEDS: Nicotine 14 MG PATCH.TD24 TD SCH (09:11)
--- NOTE | 2019-03-07 10:39 | Infectious Disease Progress No ---
ID Progress Note Date of Encounter: 03/07/19 Time of Encounter: 10:36 - Subjective Subjective: Patient seen and examined. No acute events noted overnight. Patient states she feels okay this morning. Denies fevers, chills, or rigors. Denies chest pain, shortness of breath, or cough. Denies nausea, vomiting, diarrhea, or constipation. Last BM was yesterday morning. Denies abdominal pain. No urinary incontinence/frequency/dysuria. Denies oral thrush or skin rashes. States back pain is better and is mainly located in the lower back without radiation. Reports improvement in BLE weakness. States appetite is good. - Objective CBC & Chem 7: 03/07/19 04:20 03/07/19 04:20 - Exam Vitals: Temp Pulse Resp BP Pulse Ox 98.2 F 98 16 122/77 98 03/07/19 08:36 03/07/19 08:36 03/07/19 08:36 03/07/19 08:36 03/07/19 08:36 Exam: Head: Atraumatic, normal inspection, normocephalic. Eye: EOMI, PERRLA, no scleral icterus noted. ENT: Mucous membranes moist. No odontogenic infection noted. No subconjunctival hemorrhage noted. Neck: Normal inspection, no meningismus. Respiratory: Clear to auscultation. No rales, respiratory distress, rhonchi, or wheezes noted. Cardiovascular: Regular rate and rhythm, S1 and S2 audible. No murmurs, rubs, or gallops. GI: Soft, obese, normal bowel sounds. Nontender. Extremities: No joint swelling, pedal edema, or tenderness noted. Back: Normal inspection. Pain with palpation of the lumbar and sacral spine, improved. Neurological: Alert, oriented 3, no focal deficits. Moves all extremities 4. Weakness noted to the bilateral lower extremities, but symmetrical bilaterally and improved from previous exam. Strength 4/5 bilaterally. Psychiatric: normal affect, normal mood. Skin: Dry, intact, warm. Normal color. No rashes. No endocarditis stigmata noted. - Assessment and Plan (1) Osteomyelitis Status: Suspected Location: L5-S1. Causative organism: Unclear. MRI showed abnormal bone marrow signal at L5-S1 with increased T2 signal in the L5-S1 disc space, suspicious for discitis/osteomyelitis. MRI findings discussed with the [facility] radiologist who confirms that the findings are likely secondary to osteomyelitis/discitis. Could be secondary to the patient's IV drug use. Complicated due to the hardware in the patient's back. Status post PLIF L3-S1. No sepsis criteria noted on admission, but patient developed low-grade fever and leukocytosis after admission --> resolved. Blood cultures drawn 02/27/19 are NGTD 2 sets. ESR >130 and CRP 58. IR consulted. Status post aspiration of the disc space 03/02/19. Cultures are negative. Pathology pending. Currently on IV cefepime and Vancomycin. 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 Etiology: Unclear. Infection vs. other. Ortho-spine consulted and following. No surgical intervention planned at this time. Patient requested transfer to be evaluated by her neurosurgeon, who declined to accept the patient for admission and recommended referral to [facility] neurosurgery who also declined to take the patient in transfer. Qualifiers: Encounter type: subsequent encounter Qualified Code(s): T84.216D - Breakdown (mechanical) of internal fixation device of vertebrae, subsequent encounter SNOMED Code(s): 863010121 (3) UTI (urinary tract infection) Status: Resolved Asymptomatic bacteriuria vs. true infection. The patient reported urinary incontinence, which could be due to the patient's back injury vs. infection. Urine culture positive for K. pneumoniae and MRSA. Currently on IV Vanc and cefepime, which will also cover her urine. Qualifiers: Urinary tract infection type: acute cystitis Hematuria presence: without hematuria Qualified Code(s): N30.00 - Acute cystitis without hematuria SNOMED Code(s): 50011458 (4) Chronic back pain Status: Acute Reports three previous back surgeries, most recent in [address] Skaggs. Exact details unclear as the patient is a poor historian. Qualifiers: Back pain location: low back pain Back pain laterality: midline Sciatica presence: without sciatica Qualified Code(s): M54.5 - Low back pain; G89.29 - Other chronic pain SNOMED Code(s): 546951518 (5) IVDU (intravenous drug user) Status: Chronic Reports use of IV meth within the last month. HIV non-reactive. Hepatitis B immune. The patient denies every having Hep B vaccinations. Hep C positive. SNOMED Code(s): 270304188 (6) Morbid obesity with BMI of 45.0-49.9, adult Status: Chronic SNOMED Code(s): 428109092, 47059612359063 (7) Hepatitis C antibody positive in blood Status: Acute Likely secondary to IVDU. Outpatient GI referral if the patient wants to pursue treatment. SNOMED Code(s): 774716085 - Recommendations Recommendations: Await biopsy pathology. Unfortunately, the patient was started on IV antibiotics before cultures were obtained, which likely skewed the results. The patient would likely benefit from having the hardware removed due to increased risk of seeding of the hardware. Not sure if she is a candidate for this surgery or not. She may benefit from transfer to tertiary care center. Discussed with the primary team. Transfer attempted, but the patient's neursurgeon and [facility] both declined transfer. Continue cefepime 2 grams IV Q12H. Continue Vancomycin IV. Pharmacy to dose. Goal trough ~15. Duration of treatment depends on the clinical picture, but likely 6-8 weeks. Monitor renal function and for drug toxicity and dose-adjust antibiotics. Contact precautions per hospital policy. Consult VAT for PICC placement once final discharge arrangements have been made. Will need weekly CBC, BUN/Cr, ESR, CRP, Vanc trough. Will need weekly PICC care per protocol. Follow up with ID two weeks post-discharge. Consult Discharge Plan - Plan Referrals: NONE,PCP [Primary Care Provider] - Prescriptions: Cefepime HCl [Maxipime] 2,000 mg IVPB Q12HR #1 vial Vancomycin/0.9 % Sod Chloride [Vanco 1.25 gm/250 ml-0.9% NaCl] 1.25 gm IV Q12H #1 plast..bag - Attending Attestation I have personally performed a face to face evaluation on this patient. I have reviewed and agree with the care plan. History and Exam by me shows: Assessment and plan: 1.Acute back pain for about 6 weeks 2.Osteomyelitis L5-S1 causative organism on known. Status post biopsy with interventional radiology so far cultures negative. Pathology report negative for osteomyelitis as well 3.Sepsis 4.Mechanical breakdown of internal fixation device of vertebral Recommendations I did speak with the transfer center from [facility] and they accepted the patient. Patient will be transferred there for spine evaluation. Hardware probably has to come out. In the meantime continue vancomycin and cefepime. Goal vancomycin trough 15 Monitor labs and for drug toxicity.
[2019-03-07] MEDS: Acetaminophen 325 MG TABLET PO PRN (11:50)
[2019-03-07] MEDS: tiZANidine 4 MG TABLET PO PRN ×2 (11:56→22:06)
--- NOTE | 2019-03-07 14:11 | Discharge Summary ---
- NOTES TO OUTPATIENT PROVIDER Notes to Outpatient Provider: Here with back pain and suspected L5/S1 osteomyeleitis vs discitis. Transferred to [facility] Orders not resulted at time of discharge: Pending orders 03/02/19 12:50 AFB Culture, Body Fluid [TB] AM 0400 AFB Smear [TB] Routine Fungal Culture [MYC] AM 0400 03/03/19 04:00 Surgical Pathology [PTH] AM 0400 Date of Encounter: 03/07/19 Time of Encounter: 09:30 - Discharge Diagnosis (1) Acute exacerbation of chronic low back pain Priority: Primary Status: Acute Assessment and Plan: EXAMINATION: MRI OF THE LUMBAR SPINE WITHOUT CONTRAST, 02/28/2019 9:33 am TECHNIQUE: Multiplanar multisequence MRI of the lumbar spine was performed without the administration of intravenous contrast. COMPARISON: MRI lumbar spine January 26, 2011, x-ray lumbar spine February 27, 2019 HISTORY: ORDERING SYSTEM PROVIDED HISTORY: lumbar injury FINDINGS: Motion artifact. BONES/ALIGNMENT: The patient is status post posterior instrumented fusion at L3-4 and L5-S1 with left pedicle screws. There are disc spacers at L3-4, L4-5 and L5-S1. There is known nondisplaced fracture at the posterior aspect of the left S1 screw. The left L5 pedicle screw extends to involve the superior endplate of L5, possibly with hardware loosening. The vertebral body heights are grossly maintained without compression fracture. There is abnormal bone marrow signal in the L5 and S1 vertebral bodies, suspicious for discitis/osteomyelitis. There are no significant erosive changes at the L5-S1 endplate. There is mild levoscoliosis of the lumbar spine. There is grossly normal alignment of the lumbar spine. There is degenerative disc disease with disc desiccation. 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 SPINAL CORD: The conus terminates normally. SOFT TISSUES: There is increased T2 signal in the L5-S1 disc space, suspicious for discitis. There is increased T2 signal in the paraspinal soft tissue surrounding the L5 and S1 vertebral bodies, likely related to extension of inflammatory changes. There is no drainable fluid collection or well-formed paraspinal abscess. L1-L2: There is no significant disc herniation, spinal canal stenosis or neural foraminal narrowing. Stable. L2-L3: There is no significant disc herniation, spinal canal stenosis or neural foraminal narrowing. Stable. L3-L4: Status post fusion. There is disc bulge, with severe spinal canal narrowing, moderate left and minimal right foraminal narrowing. Progressed. L4-L5: Status post fusion. There is disc osteophytic ridge with moderate to severe spinal canal narrowing, [id number] left and minimal right foraminal narrowing. Stable. L5-S1: Status post fusion. There is central disc osteophytic protrusion, contributing to moderate to severe spinal canal narrowing, moderate to severe left and moderate right foraminal narrowing. Progressed. MR/MR lumbar spine wo con IMPRESSION: Abnormal bone marrow signal at L5-S1 with increased T2 signal in the L5-S1 disc space, suspicious for discitis/osteomyelitis. Increased T2 signal in the paraspinal soft tissue surrounding the L5 and S1 vertebral bodies, likely related to extension of inflammatory changes without drainable fluid collection or well-formed abscess. Status post posterior instrumented fusion at L3-4 and L5-S1. Known nondisplaced fracture of the left S1 screw. The left L5 pedicle screw extends to the superior endplate of L5, possibly with hardware loosening. Degenerative disc disease, exacerbating congenitally narrow lumbar spinal canal, progressed at L3-4 and L5-S1. Spinal canal narrowing, severe at L3-4, moderate to severe at L4-5 and L5-S1. Foraminal narrowing, moderate to severe at left L5-S1, moderate at left L3-4 and right L5-S1, mild to moderate at left L4-5, minimal at right L3-4 and right L4-5. 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 Priority: Secondary Status: Chronic Qualifiers: Encounter type: subsequent encounter Qualified Code(s): T84.216D - Breakdown (mechanical) of internal fixation device of vertebrae, subsequent encounter (4) UTI (urinary tract infection) Priority: Secondary Status: Resolved Qualifiers: Urinary tract infection type: acute cystitis Hematuria presence: without hematuria Qualified Code(s): N30.00 - Acute cystitis without hematuria (5) IVDU (intravenous drug user) Priority: Secondary Status: Chronic (6) Hepatitis C antibody positive in blood Priority: Secondary Status: Acute (7) Morbid obesity with BMI of 45.0-49.9, adult Priority: Secondary Status: Chronic Hospital course: Ms. Alves is a 43 year old female w pmhx anxiety/depression/bipolar disorder, tobacco dependence and independently admitted IVDA, Lumbar spine surgical history (2013 Dr Gustavo Skaggs previously at [facility], now practicing in [place], [place] office number [phone]) w L3/4 and L5/S1 fusion w left pedicle screws, disc spacers L3/4, 4/5 and L5/S1, known nondisplaced fracture posterior aspect of left S1 screw w possible hardware loosening. Additional history of spine includes L3/4 disc bulge w severe spinal canal narrowing, L4/5 mod to severe spinal canal narrowing, L5/S1 mod to severe spinal canal narrowing. She was admitted to [facility] on 02/27/19 after presenting with acute on chronic low back pain over course of 3 weeks with associated intermittent numbness, tingling of BL LE that was spontaneous in nature. She additionally noted dysuria, increased freq and urgency of urination with incontinence related to urgency. On admission ortho spine was consulted and she was seen by Dr Conde. MRI L spine was obtained and revealed abnormal bone marrow signal at L5/S1 with in creased T2 in the disc space same level suspicious for discitis/osteomyelitis (exact details of result can be seen under diagnosis list in this document and disc should be sent to [facility]). Imaging was reviewed by Ortho Spine and he believed she had no acute need for surgical intervention and findings were most consistent with degenerative disease. She did have an elevated ESR >130 and given her IVDA and MRI findings our Infectious Disease team was consulted. She had WBC elevation to 11s and was afebrile. After much discussion between teams it was determined pt would be placed on empiric abx and disc space aspirate would be preformed. IR obtained fluid sample from L5/S1 space 03/02/19. We continued empiric antibiotics and awaited cxs finalization. They finalized 03/05/19 as having no growth on body fluid cx, negative anearobic cx, negative AFB stain and fungal cx remains pending. Blood cxs 02/28/19 have finalized no growth. Pt pain in back improved with IV abx. She did spike a WBC elevation to 14.2 on 03/06/19 without fever or clinical decline. She was determined to have UTI on cx (Klebsiella pneu resistant to Ampicillin and Ampicillin/Sulbactam and MRSA resistant to Oxacillin) on admission. Antibiotics include Vancomycin 1250 mg q 12 Hr IV (start date 03/01, last dose at this time 03/07 @ 05:00am) and Cefepime 2gm IV q12 h (start date 03/01, last dose at this time 03/07 @ 0645am). As there were varying opinions regarding suspicion of infection with all above results, [facility] Radiology here reviewed MRI spine with Dr Rhodes 03/06 and felt imaging likely showed osteomyelitis. Given risk of treating vs not and after must discussion, Dr Rhodes and myself pursued continued IV abx treatment and further surgical evaluation of spine to determine if hardware may need to be removed. I contacted Dr Jana Skaggs's [place] office on 03/06/19. He was not available for discussion but staff taking very detail message discussed case with him and contacted me back noting that he felt she should not be sent to [facility] if she required evaluation for possible intervention and recommended contacting [facility] for further evaluation there. Dr Rhodes and I much appreciate [facility] acceptance of Ms Alves in transfer for further evaluation. Additional incidental findings this admission include thrombocytosis and + Hep C screen. Pt is aware of both results. Urinary sx resolved with treatment of UTI. Discharge discussed with: patient, nurse, social work, independent crop consultant Time spent discussing smoking cessation with patient: more than 10 minutes - Time Spent with Patient Total time spent providing and/or coordinating discharge services: Time spent: Greater than 30 minutes (50 min) - Discharge Medications Prescriptions: New Lidocaine Patch [Lidoderm 5% patch] 1 each TP Q24H adh..patch Cefepime HCl [Maxipime] 2,000 mg IVPB Q12HR #1 vial Naloxone [Narcan] 0.4 mg IVP Q2MPRN PRN inj PRN Reason: See Comments Nicotine Patch [Nicoderm] 14 mg TD DAILY patch.td24 OxyCODONE/APAP 7.5/325 [Percocet 7.5/325 MG] 1 each PO Q4HR PRN 1 Days #1 tablet PRN Reason: Severe Pain Acetaminophen [Tylenol] 650 mg PO Q6HR PRN tablet PRN Reason: Mild Pain/Fever Vancomycin/0.9 % Sod Chloride [Vanco 1.25 gm/250 ml-0.9% NaCl] 1.25 gm IV Q12H #1 plast..bag Home Medications: Acetaminophen [Tylenol] 650 mg PO Q6HR PRN tablet 03/07/19 [Rx] Cefepime HCl [Maxipime] 2,000 mg IVPB Q12HR #1 vial 03/07/19 [Rx] Lidocaine Patch [Lidoderm 5% patch] 1 each TP Q24H adh..patch 03/07/19 [Rx] Naloxone [Narcan] 0.4 mg IVP Q2MPRN PRN inj 03/07/19 [Rx] Nicotine Patch [Nicoderm] 14 mg TD DAILY patch.td24 03/07/19 [Rx] OxyCODONE/APAP 7.5/325 [Percocet 7.5/325 MG] 1 each PO Q4HR PRN 1 Days #1 tablet 03/07/19 [Rx] Vancomycin/0.9 % Sod Chloride [Vanco 1.25 gm/250 ml-0.9% NaCl] 1.25 gm IV Q12H #1 plast..bag 03/07/19 [Rx] Allergies/Adverse Reactions: Allergy/AdvReac Type Severity Reaction Status Date / Time Sulfa (Sulfonamide Allergy Hives Verified 02/28/19 10:48 Antibiotics) Date of admission: 03/02/19 15:55 Primary care physician: PCP NONE Consults: 02/27/19 17:23 Consult to Orthopedic Surgery [CONS] Routine Consulting Provider: [facility] Reason for Consult: García Carlton Call Completed: Yes 02/28/19 15:27 Consult to Infectious Diseases [CONS] Routine Consulting Provider: Infectious Disease [facility] Reason for Consult: Concern for OM vs discitis in the lower lumbar spine. Recent Hx of IV drug use Time Notified: 15:28 Call Completed: Yes 02/28/19 16:10 Consult to Physical Therapy [CONS] Routine Comment: Evaluate, develop and implement POC Reason for Consult: low back pain Does patient have active BEDREST order?: No Is patient medically & hemodynamically stable?: Yes 03/01/19 11:37 Consult to Occupational Therapy [CONS] Routine Comment: Evaluate, develop and implement POC Reason for Consult: difficulty walking, assessment for outpt rehab placement or home with pt Does patient have active BEDREST order?: No Is patient medically & hemodynamically stable?: Yes 03/01/19 17:08 Consult to Physical Medicine Specialist [CONS] Routine Reason for SW Consult: May require placement for IV ATB's 03/01/19 17:09 Consult to Interventional Radiology [CONS] Routine Consulting Provider: Radiology Interventional Cols Reason for Consult: suspected discitis v osteo, has spinal hardware, as discussed needs disc space aspiration, we will keep npo p mn Call Completed: Yes Discharging clinician: Ariane Giraldo - Constitutional Vitals: Temp Pulse Resp BP Pulse Ox 98.5 F 87 16 120/87 100 03/07/19 13:01 03/07/19 13:01 03/07/19 13:01 03/07/19 13:01 03/07/19 13:01 Exam: gen- alert, awake,appears stated age cv- reg rate and rhythm, normal s1,s2 lungs- ctabl, normal resp effort on ra abd- soft/nt/nd neuro- AAOx3 - Patient Status Disposition: Transfer Critical Access Hosp Functional capacity at discharge: uses cane/walker Overall status at discharge: patient is not back to baseline - Discharge Instructions Follow Up With: NONE,PCP [Primary Care Provider] - - Diet and Activity Activity: ambulate only with your walker, as per physical therapy Diet: advance to your usual diet, regular diet
[2019-03-07 18:40] VITALS: BP 145/92
[2019-03-07] MEDS ORDERED: Aminoglycoside Consult 1 EACH MC ONE (22:24)
== END 2019-03-07 22:25 | disposition critical access hospital (66) | DRG 349 ==
LOC: EMEROOARM 11:02 → 3NENU 11:02 → SUATTDRO 17:16 → 3NENU 18:22
PROVIDERS: ADMIT Internal Medicine; ATTEND Internal Medicine